=== PATIENT | female | born 1945 | race Caucasian/White ===

== ENCOUNTER 2024-02-02 11:27 | Inpatient (IN) | payer BC, MEDICARE ==
--- NOTE | 2024-02-02 11:57 | ED ---
Fall HPI - General Chief Complaint: Fall Stated Complaint: fall Time Seen by Provider: 02/02/24 11:29 Source: patient, EMS, RN notes reviewed Mode of arrival: EMS Limitations: physical limitation - History of Present Illness Initial Comments: 78-year-old female presents emergency department chief complaint of trip and fall. She states get up out of her bed to go the bathroom and tripped on the rug. Patient was on the ground in her bedroom when EMS arrived. She had no head injury no loss conscious she fell onto her right hip complains of right hip pain states that it only hurts with movement there is some dull achiness otherwise. Patient denies any back pain abdominal pain or other other extremity injury she states she does not have a history of hip issues or prior surgeries. Patient received 100 mcg of fentanyl by EMS - Related Data Home Medications Medication Instructions Recorded Confirmed Cholecalciferol [Vitamin D3 (25 50 mcg PO DAILY 02/02/24 02/02/24 Mcg = 1000 Iu)] Levothyroxine Sodium [Synthroid] 100 mcg PO AC-BRKFST 02/02/24 02/02/24 amLODIPine BESYLATE/BENAZEPRIL 1 cap PO DAILY 02/02/24 02/02/24 [amLODIPine BESYLATE/BENAZEPRIL 10-20 mg] Allergies Allergy/AdvReac Type Severity Reaction Status Date / Time No Known Allergies Allergy Verified 02/02/24 14:57 Review of Systems ROS Statement: Those systems with pertinent positive or pertinent negative responses have been documented in the HPI. ROS Other: All systems not noted in ROS Statement are negative. Past Medical History Past Medical History: Hypertension, Thyroid Disorder History of Any Multi-Drug Resistant Organisms: None Reported Past Surgical History: No Surgical Hx Reported Past Psychological History: No Psychological Hx Reported Smoking Status: Current every day smoker Past Alcohol Use History: Occasional Past Drug Use History: None Reported General Exam Limitations: no limitations General appearance: alert, in no apparent distress Head exam: Present: atraumatic, normocephalic, normal inspection Respiratory exam: Present: normal lung sounds bilaterally. Absent: respiratory distress, wheezes, rales, rhonchi, stridor Cardiovascular Exam: Present: regular rate, normal rhythm, normal heart sounds. Absent: systolic murmur, diastolic murmur, rubs, gallop, clicks Extremities exam: Present: other (Right leg there is notable shortening, e xternal rotation pedal pulses equal bilaterally there is moderate tenderness palpation to the right groin, hip region) Course Vital Signs 02/02/24 02/02/24 11:29 14:00 Temperature 97.7 F Pulse Rate 74 Pulse Rate [ 62 Pulse Oximetery ] Respiratory 18 15 Rate Blood Pressure 148/89 Blood Pressure 142/86 [Left Arm] O2 Sat by Pulse 96 94 L Oximetry Medical Decision Making - Medical Decision Making Was pt. sent in by a medical professional or institution (LUIS DANIEL Fisher, SENIOR ELECTRONICS TECHNICIAN, urgent care, hospital, or detention...) When possible be specific @ -No Did you speak to anyone other than the patient for history (EMS, parent, family, police, friend...)? What history was obtained from this source @ -EMS providing prehospital treatment, medications and injury Did you review nursing and triage notes (agree or disagree)? Why? @ -I reviewed and agree with nursing and triage notes Were old charts reviewed (outside hosp., previous admission, EMS record, old EKG, old radiological studies, urgent care reports/EKG's, detention records)? Report findings @ -No old charts were reviewed Differential Diagnosis (chest pain, altered mental status, abdominal pain women, abdominal pain men, vaginal bleeding, weakness, fever, dyspnea, syncope, headache, dizziness, GI bleed, back pain, seizure, CVA, palpatations, mental health, musculoskeletal)? @ -[Fall, hip contusion, hip fracture EKG interpreted by me (3pts min.). @ -As above X-rays interpreted by me (1pt min.). @ -X-ray right hip with AP pelvis showing right IT fracture CT interpreted by me (1pt min.). @ -None done U/S interpreted by me (1pt. min.). @ -None done What testing was considered but not performed or refused? (CT, X-rays, U/S, labs)? Why? @ -None What meds were considered but not given or refused? Why? @ -None Did you discuss the management of the patient with other professionals (professionals i.e. LUIS DANIEL Fisher, SENIOR ELECTRONICS TECHNICIAN, lab, RT, psych nurse, social service liaison, orthodontist small business owner, teacher, project control officer, case liner)? Give summary @ -Dr. Cramer on-call orthopedics for admission Was smoking cessation discussed for >3mins.? @ -No Was critical care preformed (if so, how long)? @ -No Were there social determinants of health that impacted care today? How? (Homelessness, low income, unemployed, alcoholism, drug addiction, transportation, low edu. Level, literacy, decrease access to med. care, [facility], rehab)? @ -No Was there de-escalation of care discussed even if they declined (Discuss DNR or withdrawal of care, Hospice)? DNR status @ -No What co-morbidities impacted this encounter? (DM, HTN, Smoking, COPD, CAD, Can cer, CVA, ARF, Chemo, Hep., AIDS, mental health diagnosis, sleep apnea, morbid obesity)? @ -None Was patient admitted / discharged? Hospital course, mention meds given and route, prescriptions, significant lab abnormalities, going to OR and other pertinent info. @ -Admitted patient found to have right IT fracture laboratory studies EKG and chest x-ray were ordered patient will be admitted for further treatment management. Undiagnosed new problem with uncertain prognosis? @ -No Drug Therapy requiring intensive monitoring for toxicity (Heparin, Nitro, Insulin, Cardizem)? @ -No Were any procedures done? @ -No Diagnosis/symptom? @ -Fall, right IT fracture Acute, or Chronic, or Acute on Chronic? @ -Acute Uncomplicated (without systemic symptoms) or Complicated (systemic symptoms)? @ -Complicated Side effects of treatment? @ -No Exacerbation, Progression, or Severe Exacerbation? @ -No Poses a threat to life or bodily function? How? (Chest pain, [place], [place], pneumonia, PE, COPD, DKA, ARF, appy, cholecystitis, CVA, Diverticulitis, Homicidal, Suicidal, threat to staff... and all critical care pts) @ -Yes surgical risk - Lab Data Result diagrams: 02/02/24 12:02 02/02/24 12:02 Lab Results 02/02/24 02/02/24 02/02/24 Range/Units 12:02 12:02 12:02 WBC 11.1 H (3.8-10.6) k/uL RBC 3.83 (3.80-5.40) m/uL Hgb 13.4 (11.4-16.0) gm/dL Hct 39.7 (34.0-46.0) % MCV 103.5 H (80.0-100.0) fL MCH 34.9 (25.0-35.0) pg MCHC 33.7 (31.0-37.0) g/dL RDW 14.0 (11.5-15.5) % Plt Count 169 (150-450) k/uL MPV 8.5 Neutrophils % 87 % Lymphocytes % 6 % Monocytes % 5 % Eosinophils % 1 % Basophils % 0 % Neutrophils # 9.7 H (1.3-7.7) k/uL Lymphocytes # 0.7 L (1.0-4.8) k/uL Monocytes # 0.6 (0-1.0) k/uL Eosinophils # 0.1 (0-0.7) k/uL Basophils # 0.0 (0-0.2) k/uL Macrocytosis Slight PT 11.5 (10.0-12.5) sec INR 1.1 (<1.2) APTT 24.9 (22.0-30.0) sec Sodium 130 L (137-145) mmol/L Potassium 3.9 (3.5-5.1) mmol/L Chloride 103 (98-107) mmol/L Carbon Dioxide 21 L (22-30) mmol/L Anion Gap 6 mmol/L BUN 8 (7-17) mg/dL Creatinine 0.41 L (0.52-1.04) mg/dL Est GFR (CKD-EPI)AfAm >90 (>60 ml/min/1.73 sqM) Est GFR (CKD-EPI)NonAf >90 (>60 ml/min/1.73 sqM) Glucose 111 H (74-99) mg/dL Calcium 8.3 L (8.4-10.2) mg/dL Total Bilirubin 1.1 (0.2-1.3) mg/dL AST 26 (14-36) U/L ALT 16 (4-34) U/L Alkaline Phosphatase 80 (38-126) U/L Total Protein 5.9 L (6.3-8.2) g/dL Albumin 3.7 (3.5-5.0) g/dL Urine Color Urine Appearance (Clear) Urine pH (5.0-8.0) Ur Specific [place] (1.001-1.035) Urine Protein (Negative) Urine Glucose (UA) (Negative) Urine Ketones (Negative) Urine Blood (Negative) Urine Nitrite (Negative) Urine Bilirubin (Negative) Urine Urobilinogen (<2.0) mg/dL Ur Leukocyte Esterase (Negative) 02/02/24 Range/Units 12:09 WBC (3.8-10.6) k/uL RBC (3.80-5.40) m/uL Hgb (11.4-16.0) gm/dL Hct (34.0-46.0) % MCV (80.0-100.0) fL MCH (25.0-35.0) pg MCHC (31.0-37.0) g/dL RDW (11.5-15.5) % Plt Count (150-450) k/uL MPV Neutrophils % % Lymphocytes % % Monocytes % % Eosinophils % % Basophils % % Neutrophils # (1.3-7.7) k/uL Lymphocytes # (1.0-4.8) k/uL Monocytes # (0-1.0) k/uL Eosinophils # (0-0.7) k/uL Basophils # (0-0.2) k/uL Macrocytosis PT (10.0-12.5) sec INR (<1.2) APTT (22.0-30.0) sec Sodium (137-145) mmol/L Potassium (3.5-5.1) mmol/L Chloride (98-107) mmol/L Carbon Dioxide (22-30) mmol/L Anion Gap mmol/L BUN (7-17) mg/dL Creatinine (0.52-1.04) mg/dL Est GFR (CKD-EPI)AfAm (>60 ml/min/1.73 sqM) Est GFR (CKD-EPI)NonAf (>60 ml/min/1.73 sqM) Glucose (74-99) mg/dL Calcium (8.4-10.2) mg/dL Total Bilirubin (0.2-1.3) mg/dL AST (14-36) U/L ALT (4-34) U/L Alkaline Phosphatase (38-126) U/L Total Protein (6.3-8.2) g/dL Albumin (3.5-5.0) g/dL Urine Color Colorless Urine Appearance Clear (Clear) Urine pH 7.5 (5.0-8.0) Ur Specific [place] 1.010 (1.001-1.035) Urine Protein Negative (Negative) Urine Glucose (UA) Negative (Negative) Urine Ketones Trace H (Negative) Urine Blood Negative (Negative) Urine Nitrite Negative (Negative) Urine Bilirubin Negative (Negative) Urine Urobilinogen <2.0 (<2.0) mg/dL Ur Leukocyte Esterase Negative (Negative) - EKG Data -: EKG Interpreted by Me EKG Comments: EKG performed at 15: 53 sinus rhythm with rate 65 NE 157 QRS 101 QT/QTc 397/[address] elevation or depression normal axis. Disposition Clinical Impression: Fall, Fracture, intertrochanteric, right femur Disposition: ADMITTED IP TO THIS HOSP Condition: Fair Time of Disposition: 11:57
[2024-02-02] MEDS ORDERED: NALOXONE 0.4 MG/ML 1 ML VIAL IV PRN (12:00)
[2024-02-02] MEDS ORDERED: HYDROmorphone 1 MG/ML 1 ML SYRINGE IVP PRN (12:00)
[2024-02-02 12:17] LABS: Basophils % (A) 0 %; Eosinophils # (A) 0.1 k/uL (0-0.7); Eosinophils % (A) 1 %; HCT 39.7 % (34.0-46.0); HGB 13.4 gm/dL (11.4-16.0); Lymphocytes # (A) 0.7 k/uL (1.0-4.8); Lymphocytes % (A) 6 %; MCH 34.9 pg (25.0-35.0); MCHC 33.7 g/dL (31.0-37.0); MCV 103.5 fL (80.0-100.0); Macrocytosis Slight; Mean Platelet Volume 8.5; Monocytes # (A) 0.6 k/uL (0-1.0); Monocytes % (A) 5 %; Neutrophils # (A) 9.7 k/uL (1.3-7.7); Neutrophils % (A) 87 %; Platelet Count 169 k/uL (150-450); RBC 3.83 m/uL (3.80-5.40); WBC 11.1 k/uL (3.8-10.6)
[2024-02-02 12:23] LABS: Appearance,Urine Clear (Clear); Bilirubin,Urine Negative (Negative); Blood,Urine Negative (Negative); Color,Urine Colorless; Glucose,Urine (UA) Negative (Negative); Ketones,Urine Trace (Negative); Leukocyte Esterase,Urine Negative (Negative); Nitrite,Urine Negative (Negative); PH, Urine 7.5 (5.0-8.0); Protein,Urine Negative (Negative); Urobilinogen,Urine <2.0 mg/dL (<2.0)
[2024-02-02 12:23] LABS: INR 1.1 (<1.2); Partial Thromboplastin Time 24.9 sec (22.0-30.0); Prothrombin Time 11.5 sec (10.0-12.5)
--- NOTE | 2024-02-02 12:27 | XR ---
EXAMINATION TYPE: XR Hip RT and AP Pelvis DATE OF EXAM: 02/02/2024 11:42 AM CLINICAL INDICATION:Female, 78 years old with history of pain; [facility] COMPARISON: None. TECHNIQUE: Frontal view pelvis and 2 views right hip. FINDINGS: Acute intertrochanteric region fracture of the right proximal femur involving the base of the femoral neck, with increased varus angulation at the fracture site. No hip dislocation. Moderate right hip o steoarthropathy. Right hemipelvis appears intact. There is mild deformity of the left superior and in ferior pubic rami, favored to represent remote healed fracture. Left hip is unremarkable. Sacrum and SI joints are largely obscured by bowel contents. Mild degenerative changes of the visualized lower l umbar spine. IMPRESSION: Acute intertrochanteric fracture of the right proximal femur with involvement of the base of the femo ral neck. Increased varus angulation at the fracture site.
[2024-02-02 12:37] LABS: ALT 16 U/L (4-34); AST 26 U/L (14-36); African American GFR (CKD) >90 (>60 ml/min/1.73 sqM); Albumin 3.7 g/dL (3.5-5.0); Alkaline Phosphatase 80 U/L (38-126); Anion Gap 6 mmol/L; Blood Urea Nitrogen 8 mg/dL (7-17); Calcium 8.3 mg/dL (8.4-10.2); Carbon Dioxide 21 mmol/L (22-30); Chloride 103 mmol/L (98-107); Glucose 111 mg/dL (74-99); Non-African American GFR(CKD) >90 (>60 ml/min/1.73 sqM); Potassium 3.9 mmol/L (3.5-5.1); Sodium 130 mmol/L (137-145); Total Bilirubin 1.1 mg/dL (0.2-1.3); Total Protein 5.9 g/dL (6.3-8.2)
--- NOTE | 2024-02-02 12:44 | XR ---
EXAMINATION TYPE: XR chest 1V DATE OF EXAM: 02/02/2024 12:16 PM CLINICAL INDICATION:Female, 78 years old with history of preop; [facility] COMPARISON: none TECHNIQUE: XR chest 1V Frontal view of the chest. FINDINGS: Lungs/Pleura: There is no evidence of pleural effusion, focal consolidation, or pneumothorax. Pulmonary vascularity: Pulmonary vascular congestion. Heart/mediastinum: Cardiomediastinal silhouette is unremarkable. Musculoskeletal: No acute osseous pathology. IMPRESSION: Mild pulmonary vascular congestion otherwise no acute pulmonary vascular congestion. Correlate serum BNP.
[2024-02-02] MEDS: HYDROmorphone 0.5 MG/0.5 ML SYRINGE IVP PRN (13:32)
[2024-02-02] MEDS: ONDANSETRON 4 MG/2 ML VIAL IVP PRN (15:00)
[2024-02-02] MEDS: ACETAMINOPHEN TAB 325 MG TAB PO PRN (17:51)
[2024-02-02] MEDS: SODIUM CHLORIDE 0.9% 1,000 ML IV SCH (18:06)
--- NOTE | 2024-02-03 00:01 | P.CONS ---
History of Present Illness - Reason for Consult Consult date: 02/02/24 Medical management - Chief Complaint Right hip pain - History of Present Illness Patient is a 78-year-old female with a past medical history of hypertension, hypothyroidism presents to ER status post fall. Patient woke up early in the a.m. today and was going to the bathroom. Patient tripped on the rug and fell on the ground. Patient was found on the floor when EMS arrived. Otherwise patient denied any loss of consciousness. Denies any hitting her head. She was complaining of right hip pain especially with movements and has been constant. Denies any recent illnesses. No chest pain or shortness of breath. No headache or dizziness or lightheadedness. No complaints of back pain. Denies any fever or chills. X-ray hip/pelvis showed acute intertrochanteric fracture of the right proximal femur with involvement of the base of the femoral neck. Increased varus angulation at the fracture site. Chest x-ray showed mild pulmonary vascular congestion and correlate with proBNP Laboratory data showed WBC 11.1 hemoglobin 13.4 and platelets 169 MCV 103.5, sodium 130 potassium 3.9 chloride 103 bicarb is 21 BUN 18 creatinine 0.41 blood sugar 111 and calcium 8.3. Urinalysis is negative for infection. Review of Systems Constitutional: Patient denies any fever or chills . No generalized weakness or weight loss. Abdomen: Patient denied nausea vomiting and diarrhea and abdominal pain. Cardiovascular: Patient denies any chest pain or short of breath no pa lpitations. Respiratory: patient denied any cough is from production. No shortness of breath Neurologic: Patient denied any numbness or tingling headache. Musculoskeletal: Patient denies any complaints of joint swelling or deformity. Right hip pain Skin: Negative Psychiatric: Negative Endocrine: No heat or cold intolerance. No recent weight gain. Genitourinary: No dysuria or hematuria. All other 14 point ROS negative except the above Past Medical History Past Medical History: Hypertension, Thyroid Disorder History of Any Multi-Drug Resistant Organisms: None Reported Past Surgical History: No Surgical Hx Reported Past Psychological History: No Psychological Hx Reported Smoking Status: Current every day smoker Past Alcohol Use History: Occasional Past Drug Use History: None Reported Medications and Allergies Home Medications Medication Instructions Recorded Confirmed Type Cholecalciferol [Vitamin D3 (25 50 mcg PO DAILY 02/02/24 02/02/24 History Mcg = 1000 Iu)] Levothyroxine Sodium [Synthroid] 100 mcg PO AC-BRKFST 02/02/24 02/02/24 History amLODIPine BESYLATE/BENAZEPRIL 1 cap PO DAILY 02/02/24 02/02/24 History [amLODIPine BESYLATE/BENAZEPRIL 10-20 mg] Aspirin [Adult Low Dose Aspirin EC] 81 mg PO BID #1 tab 02/03/24 Rx HYDROcodone/APAP 5-325MG [[place] 1 - 2 tab PO Q6HR PRN #32 tab 02/03/24 Rx 5-325] Sennosides-Docusate Sodium 1 tab PO BID #60 tablet 02/03/24 Rx [Senokot-S] Acetaminophen Tab [Tylenol] 650 mg PO Q6HR PRN tab 02/05/24 Rx Cyanocobalamin [Vitamin B-12] 1,000 mcg PO W/BRKFST tab 02/05/24 Rx Famotidine [Pepcid] 20 mg PO BID tab 02/05/24 Rx Magnesium Hydroxide [Milk of 2,400 mg PO DAILY PRN ml 02/05/24 Rx Magnesia] Allergies Allergy/AdvReac Type Severity Reaction Status Date / Time No Known Allergies Allergy Verified 02/02/24 14:57 Physical Exam Vitals: Vital Signs Pulse Resp BP Pulse Ox 02/02/24 11:29 74 18 148/89 96 Intake and Output 02/01/24 02/02/24 02/02/24 22:59 06:59 14:59 Other: Weight 61.235 kg PHYSICAL EXAMINATION: Patient is lying in the bed comfortably, no acute distress, awake alert and oriented.. HEENT: Normocephalic. Neck is supple. Pupils reactive. Nostrils clear. Oral cavity is moist. Neck reveals no JVD, carotid bruits, or thyromegaly. CHEST EXAMINATION: Trachea is central. Symmetrical expansion. Lung talavera clear to auscultation and percussion. CARDIAC: Normal S1, S2 with no gallops. No murmurs ABDOMEN: Soft. Bowel sounds normal. No organomegaly. No abdominal bruits. Extremities: reveal no edema. No clubbing or cyanosis Neurologically awake, alert, oriented x3 with well-coordinated movements. No focal deficits noted Skin: No rash or skin lesions. Psychiatric: Coperative. Nonsuicidal Musculoskeletal: No joint swelling or deformity. Right hip decreased range of motion Results CBC & Chem 7: 02/05/24 05:31 02/05/24 05:31 Labs: Abnormal Lab Results - Last 24 Hours (Table) 02/02/24 02/02/24 02/02/24 Range/Units 12:02 12:02 12:09 WBC 11.1 H (3.8-10.6) k/uL MCV 103.5 H (80.0-100.0) fL Neutrophils # 9.7 H (1.3-7.7) k/uL Lymphocytes # 0.7 L (1.0-4.8) k/uL Sodium 130 L (137-145) mmol/L Carbon Dioxide 21 L (22-30) mmol/L Creatinine 0.41 L (0.52-1.04) mg/dL Glucose 111 H (74-99) mg/dL Calcium 8.3 L (8.4-10.2) mg/dL Total Protein 5.9 L (6.3-8.2) g/dL Urine Ketones Trace H (Negative) Assessment and Plan Assessment: Acute intertrochanteric fracture of the right proximal femur with involvement of the base of the femoral neck. Hypertension fairly controlled. Hypothyroidism Mild leukocytosis likely reactive Hypovolemic hyponatremia GI and DVT prophylaxis as per primary team Plan: Patient will be continued on pain management and encourage incentive spirometry. Patient was started on gentle IV hydration. Currently on room air and no complaints of chest pain or shortness of breath. Follow-up proBNP level is significantly elevated will order 2D echocardiogram. Follow-up CBC and BMP tomorrow Start back on home blood pressure medication including Norvasc and lisinopril. Ordered B12 and folate levels due to macrocytosis. Patient does not have any prior history of smoking. No prior history of CKD or CVA. Revised cardiac risk index for preoperative risk is less than 3.9%. Otherwise patient does have good functional status prior to the fall. Patient is at low risk for hepatic surgery. Will continue to follow closely and further recommendations based on the clinical course. Thank you kindly for your consult. Time with Patient: Greater than 30
[2024-02-03] MEDS: LEVOTHYROXINE 100 MCG TAB PO SCH (06:50)
[2024-02-03] MEDS: CHOLECALCIFEROL 25 MCG (1000 IU) TABLET PO SCH (07:47)
[2024-02-03 08:01] LABS: Basophils % (A) 0 %; Eosinophils % (A) 0 %; HCT 38.4 % (34.0-46.0); HGB 12.5 gm/dL (11.4-16.0); Lymphocytes # (A) 1.2 k/uL (1.0-4.8); Lymphocytes % (A) 11 %; MCH 34.3 pg (25.0-35.0); MCHC 32.6 g/dL (31.0-37.0); MCV 105.5 fL (80.0-100.0); Macrocytosis Slight; Mean Platelet Volume 8.4; Monocytes # (A) 0.6 k/uL (0-1.0); Monocytes % (A) 5 %; Neutrophils # (A) 9.1 k/uL (1.3-7.7); Neutrophils % (A) 83 %; Platelet Count 168 k/uL (150-450); RBC 3.64 m/uL (3.80-5.40); RDW 13.6 % (11.5-15.5)
[2024-02-03 08:27] LABS: African American GFR (CKD) >90 (>60 ml/min/1.73 sqM); Anion Gap 6 mmol/L; Blood Urea Nitrogen 7 mg/dL (7-17); Calcium 8.3 mg/dL (8.4-10.2); Carbon Dioxide 20 mmol/L (22-30); Chloride 103 mmol/L (98-107); Glucose 96 mg/dL (74-99); Non-African American GFR(CKD) >90 (>60 ml/min/1.73 sqM); Potassium 3.5 mmol/L (3.5-5.1); Sodium 129 mmol/L (137-145)
--- NOTE | 2024-02-03 08:54 | P.HPOR ---
History of Present Illness H&P Date: 02/02/24 Chief Complaint: Right hip fracture. This is a 78-year-old female who lost her footing and fell in her bathroom early in the morning on 02/02/2024 and sustained injury to her right hip. On exam and x-ray in the emergency department she is found to have an intertrochanteric fr acture of the right hip. She is admitted to our service for surgical intervention and care. She has no complaint of head or neck pain. No complaint of low back pain. Past Medical History Past Medical History: Hypertension, Thyroid Disorder History of Any Multi-Drug Resistant Organisms: None Reported Past Surgical History: No Surgical Hx Reported Additional Past Surgical History / Comment(s): eye surgery Past Anesthesia/Blood Transfusion Reactions: No Reported Reaction Past Psychological History: No Psychological Hx Reported Smoking Status: Current every day smoker Past Alcohol Use History: Occasional Past Drug Use History: None Reported Medications and Allergies Home Medications Medication Instructions Recorded Confirmed Type Cholecalciferol [Vitamin D3 (25 50 mcg PO DAILY 02/02/24 02/02/24 History Mcg = 1000 Iu)] Levothyroxine Sodium [Synthroid] 100 mcg PO AC-BRKFST 02/02/24 02/02/24 History amLODIPine BESYLATE/BENAZEPRIL 1 cap PO DAILY 02/02/24 02/02/24 History [amLODIPine BESYLATE/BENAZEPRIL 10-20 mg] Allergies Allergy/AdvReac Type Severity Reaction Status Date / Time No Known Allergies Allergy Verified 02/02/24 14:57 Physical Examination This is a pleasant 78-year-old female in no acute distress. She is alert and oriented x 3. Her is present at bedside. Exam of the head neck revealed no obvious deformity. She has full cervical spine motion without difficulty or pain. Exam of the upper extremities reveals no obvious deformity. She has full shoulder, elbow, wrist and finger motion bilaterally. Neurovascular status to the upper extremities is intact. Exam of the lower extremities reveals shortening and external rotation to the right leg. There is some very mild edema to the lower legs bilaterally. She has full foot and ankle motion bilaterally. Neurovascular status to the lower extremities is intact. Results X-rays of the hip and pelvis reveal a minimally displaced intertrochanteric fracture of the right hip. No other bony abnormalities noted. - Labs Labs: Abnormal Lab Results - Last 24 Hours (Table) 02/02/24 02/02/24 02/02/24 Range/Units 12:02 12:02 12:09 WBC 11.1 H (3.8-10.6) k/uL RBC (3.80-5.40) m/uL MCV 103.5 H (80.0-100.0) fL Neutrophils # 9.7 H (1.3-7.7) k/uL Lymphocytes # 0.7 L (1.0-4.8) k/uL Sodium 130 L (137-145) mmol/L Carbon Dioxide 21 L (22-30) mmol/L Creatinine 0.41 L (0.52-1.04) mg/dL Glucose 111 H (74-99) mg/dL Calcium 8.3 L (8.4-10.2) mg/dL Total Protein 5.9 L (6.3-8.2) g/dL Urine Ketones Trace H (Negative) 02/03/24 02/03/24 Range/Units 06:33 06:36 WBC 11.0 H (3.8-10.6) k/uL RBC 3.64 L (3.80-5.40) m/uL MCV 105.5 H (80.0-100.0) fL Neutrophils # 9.1 H (1.3-7.7) k/uL Lymphocytes # (1.0-4.8) k/uL Sodium 129 L (137-145) mmol/L Carbon Dioxide 20 L (22-30) mmol/L Creatinine 0.46 L (0.52-1.04) mg/dL Glucose (74-99) mg/dL Calcium 8.3 L (8.4-10.2) mg/dL Total Protein (6.3-8.2) g/dL Urine Ketones (Negative) H & H 02/02/24 02/03/24 Range/Units 12:02 06:36 Hgb 13.4 12.5 (11.4-16.0) gm/dL Hct 39.7 38.4 (34.0-46.0) % Coagulation 02/02/24 Range/Units 12:02 INR 1.1 (<1.2) Result Diagrams: 02/03/24 06:36 02/03/24 06:33 Assessment and Plan (1) Fall Current Visit: Yes Status: Acute Code(s): W19.XXXA - UNSPECIFIED FALL, INITIAL ENCOUNTER SNOMED Code(s): 9851028 (2) Fracture, intertrochanteric, right femur Current Visit: Yes Status: Acute Code(s): S72.141A - DISPLACED INTERTROCHANTERIC FRACTURE OF RIGHT FEMUR, INIT SNOMED Code(s): 768928108 Plan: The clinical and x-ray findings are discussed with the patient and her . It is recommended she undergo closed reduction with insertion of intertrochanteric nail of the right hip. We are planning the procedure for today. The procedure has been discussed in detail including the possible risks and outcomes of surgery. We discussed the potential need for inpatient rehab postoperatively. After discussion and consideration the patient elects to proceed with surgery. She has been evaluated by internal medicine and deemed an acceptable risk for surgery.
[2024-02-03] MEDS ORDERED: fentaNYL (PF) 50 MCG/ML 2 ML AMP ONE (09:01)
[2024-02-03] MEDS ORDERED: ePHEDrine 50 MG/ML 1 ML VIAL ONE (09:01)
[2024-02-03] MEDS ORDERED: KETAMINE HCL IN 0.9 % NACL 50 MG/5 ML SYRINGE ONE (09:01)
[2024-02-03] MEDS ORDERED: PROPOFOL 10 MG/ML 20 ML VIAL IV ONE (09:01)
[2024-02-03] MEDS ORDERED: TRANEXAMIC 1,000 MG/100ML-NACL PREMIX BAG ONE (09:01)
[2024-02-03] MEDS ORDERED: MIDAZOLAM 2 MG/2 ML VIAL ONE (09:01)
[2024-02-03] MEDS: LACTATED RINGERS 1,000 ML IV ONE (09:05)
[2024-02-03] MEDS: SODIUM CHLORIDE 0.9% 50 ML with ceFAZolin 2,000 MG IV ONE (09:05)
[2024-02-03] MEDS: ceFAZolin 1,000 MG in SODIUM CHLORIDE 0.9% 1,000 ML IRRIGATION ONE (09:38)
--- NOTE | 2024-02-03 10:03 | P.OP ---
Date of Procedure: 02/03/24 Procedure(s) Performed: PREOPERATIVE DIAGNOSIS: Right hip intertrochanteric fracture. POSTOPERATIVE DIAGNOSIS: Right hip intertrochanteric fracture. OPERATION: Right hip intertrochanteric fracture closed reduction and intramedullary nailing using Synthes IT nail. SEED EXPERT: Lorenza Hurtado PA-C (Assistance with: Patient positioning, retraction, exposure, hemostasis, fixation, irrigation, closure, dressing) ANESTHESIA: Spinal ESTIMATED BLOOD LOSS: 50 mL. COMPLICATIONS: None OPERATIVE FINDINGS: See dictation INDICATIONS: Nataly is a 78-year-old female with a history of right intertrochanteric fracture. The fracture is a clean basi-cervical type fracture. The patient presents to the operating room today for closed reduction and intramedullary nailing. I discussed the risks of surgery in detail as being inclusive of but not limited to: Bleeding, infection, scarring, discomfort, blood vessel and/or nerve damage, need for further surgery, malunion, nonunion, gait disturbance including persistent or permanent limp, limb length inequality, arthritis, hardware failure, blood clot, pulmonary embolism, , and other risks. The consent form has been signed. PROCEDURE: After appropriate consent was obtained, the patient was taken to the operating room and placed in supine position. Spinal anesthetic was administered and after confirmation of adequate anesthesia, the patient was carefully placed in the supine position on the operating room table in the fracture table. The patient was placed up against a well-padded peroneal post. Care was taken to make sure about that all pressure points were adequately padded. The affected leg was placed in boot traction and the unaffected leg was placed in a well leg ku. Using gentle longitudinal distraction as well as adduction and internal rotation, the fracture was reduced as assessed by AP and lateral C-arm imaging. Once a satisfactory reduction had been obtained, the thigh was prepped and draped in the usual aseptic fashion using ChloraPrep. Ioban drape was used for the case and the patient received intravenous antibiotics prior to incision. Timeout was called, confirming patient identity, side, procedure, and administration of antibiotics. The incision was then created with a #10 blade just proximal to the greater trochanter laterally. It was carried down through skin into the subcutaneous tissues and through fascia. Hemostasis was obtained using electrocautery. The tip of the greater trochanter was palpated and a guide pin was placed at the tip and directed into the femoral shaft as assessed with C-arm imaging. Once optimal pin position had been obtained, a 17 mm reamer was used over the guide pin to create a path for the IT nail. IT nail selected was assembled to the insertion jig on the back table and bushings were checked for accuracy. The nail was then inserted using gentle mallet taps until it was fully deployed. The amount of rotation of the implant was assessed based on the amount of anteversion of the femoral neck. This was rotated to match the patient's femoral neck anteversion and the helical blade guide was placed through the insertion jig and through an incision on the lateral side of the thigh more distal than the first. Once this guide was placed against the lateral cortex of the femur, a guide pin was drilled into the central region of the femoral head and neck as based on AP and lateral C-arm imaging. Once optimal pin position had been obtained, the guidewire was measured and appropriately sized helical blade was selected. The path for the helical blade was prepared using a tapered reamer. The helical blade was then inserted using gentle mallet taps along the guidewire until it was fully deployed. There was no displacement of the fracture during this step. The anti-rotation screw was locked down and the insertion apparatus for the helical blade was removed. The guide pin was then removed. Traction was then removed from the leg and the distal interlock was placed through the jig using standard technique. Finally, the insertion jig for the nail was removed and final C-arm images were taken and saved in both AP and lateral planes. The final x-rays showed satisfactory positioning of the implant and good reduction of the fracture. The top of the nail was plugged with a small quantity of bone wax and the incisions were then thoroughly irrigated with normal saline. Final hemostasis was obtained using electrocautery and closure of the fascia was performed using 0-Vicryl suture. 2-0 Vicryl suture was used in the subcutaneous tissues and standard skin closure was performed. Sterile dressing was then applied and the patient was carefully removed from the fracture table frame and placed onto the stretcher. The patient tolerated the procedure well. There were no complications and above noted blood loss. The patient was then subsequently transferred to recovery room in stable condition. Sponge and needle counts were correct.
[2024-02-03] MEDS ORDERED: NALOXONE 0.4 MG/ML 1 ML VIAL IV PRN (10:26)
[2024-02-03] MEDS ORDERED: HYDROmorphone 0.5 MG/0.5 ML SYRINGE IVP PRN ×2 (10:26)
[2024-02-03] MEDS: IV FLUID CONTINUATION 1,000 ML IV ONE (11:07)
[2024-02-03] MEDS: HYDROcodone/APAP 5-325MG 1 EACH TAB PO PRN ×2 (12:28→17:54)
[2024-02-03] MEDS: LACTATED RINGERS 1,000 ML IV SCH (12:29)
[2024-02-03] MEDS: amLODIPine 10 MG TAB PO SCH (13:41)
--- NOTE | 2024-02-03 13:41 | FL ---
EXAMINATION TYPE: FL guidance operating room, XR Hip Limited RT Intraoperative/procedural fluoroscopi c services were provided. Total fluoroscopy time is 30 seconds with a total of 2 submitted images to PACS. Please see the operative/procedural note for further details. DAP: 1.7728 Gycm2
[2024-02-03] MEDS: lisinopriL 20 MG TAB PO SCH (13:42)
[2024-02-03] MEDS: HYDROmorphone 0.5 MG/0.5 ML SYRINGE IVP PRN (15:18)
[2024-02-03] MEDS: SENNOSIDES-DOCUSATE SODIUM 1 EACH TAB PO SCH (21:03)
[2024-02-03] MEDS: ASPIRIN 81 MG PO SCH (21:03)
[2024-02-04] MEDS ORDERED: Potassium Replacement Protocol 1 EACH MISC MISCELLANE PRN (02:02)
--- NOTE | 2024-02-04 02:02 | P.PN ---
Subjective Progress Note Date: 02/03/24 Patient is a 78-year-old female with a past medical history of hypertension, hypothyroidism presents to ER status post fall. Patient woke up early in the a.m. today and was going to the bathroom. Patient tripped on the rug and fell on the ground. Patient was found on the floor when EMS arrived. Otherwise patient denied any loss of consciousness. Denies any hitting her head. She was complaining of right hip pain especially with movements and has been constant. Denies any recent illnesses. No chest pain or shortness of breath. No headache or dizziness or lightheadedness. No complaints of back pain. Denies any fever or chills. X-ray hip/pelvis showed acute intertrochanteric fracture of the right proximal femur with involvement of the base of the femoral neck. Increased varus angulation at the fracture site. Chest x-ray showed mild pulmonary vascular congestion and correlate with proBNP Laboratory data showed WBC 11.1 hemoglobin 13.4 and platelets 169 MCV 103.5, sodium 130 potassium 3.9 chloride 103 bicarb is 21 BUN 18 creatinine 0.41 blood sugar 111 and calcium 8.3. Urinalysis is negative for infection 02/03/2024 Patient is status post closed reduction and intramedullary nailing for right hip intertrochanteric fracture. Postoperative day 0 Patient is complaining of pain but controlled with medications. Also was nauseous. No episodes of vomiting. No fever no chest pain no chest pain or shortness of breath. Laboratory data showed WBC 11.0 hemoglobin 12.5 and platelets 168, sodium 129 potassium 3.5 chloride 103 bicarb is 20 BUN 7 creatinine 0.46 and blood sugar is 8.3 and B12 level is 169. Current medications reviewed. Objective - Vital Signs Vital signs: Vital Signs Temp 98.1 F 02/03/24 15:22 Pulse 69 02/03/24 15:22 Resp 17 02/03/24 15:22 BP 128/72 02/03/24 15:22 Pulse Ox 92 L 02/03/24 15:22 FiO2 Intake & Output 02/03/24 02/03/24 02/04/24 06:59 18:59 06:59 Intake Total 420 1651 Output Total 200 750 Balance 220 901 Intake: IV 1651 Lactated Ringers 1,000 ml 600 @ 100 mls/hr IV .Q10H MIGUE Rx#:[id number] Oral 420 Output: Urine 200 700 Uretheral (Cardenas) 50 Estimated Blood Loss 50 Other: Voiding Method Indwelling Catheter Indwelling Catheter - Exam PHYSICAL EXAMINATION: Patient is lying in the bed comfortably, no acute distress, awake alert and oriented.. HEENT: Normocephalic. Neck is supple. Pupils reactive. Nostrils clear. Oral cavity is moist. Neck reveals no JVD, carotid bruits, or thyromegaly. CHEST EXAMINATION: Trachea is central. Symmetrical expansion. Bibasilar diminished sounds otherwise lung talavera clear to auscultation and percussion. CARDIAC: Normal S1, S2 with no gallops. No murmurs ABDOMEN: Soft. Bowel sounds normal. No organomegaly. No abdominal bruits. Extremities: reveal no edema. No clubbing or cyanosis Neurologically awake, alert, oriented x3 with well-coordinated movements. No focal deficits noted Skin: No rash or skin lesions. Psychiatric: Coperative. Nonsuicidal Musculoskeletal: No joint swelling or deformity. Right hip surgical site intact. - Labs CBC & Chem 7: 02/03/24 06:36 02/03/24 06:33 Labs: Abnormal Lab Results - Last 24 Hours (Table) 02/03/24 02/03/24 02/03/24 Range/Units 06:33 06:34 06:36 WBC 11.0 H (3.8-10.6) k/uL RBC 3.64 L (3.80-5.40) m/uL MCV 105.5 H (80.0-100.0) fL Neutrophils # 9.1 H (1.3-7.7) k/uL Sodium 129 L (137-145) mmol/L Carbon Dioxide 20 L (22-30) mmol/L Creatinine 0.46 L (0.52-1.04) mg/dL Calcium 8.3 L (8.4-10.2) mg/dL Vitamin B12 169.0 L (200.0-944.0) pg/mL Assessment and Plan Assessment: Acute intertrochanteric fracture of the right proximal femur with involvement of the base of the femoral neck. Status post closed reduction and intramedullary nailing. Postop day 0 Vitamin B12 deficiency Hypertension fairly controlled. Hypothyroidism Mild leukocytosis likely reactive Hypovolemic hyponatremia GI and DVT prophylaxis as per primary team Plan: Patient is status post closed reduction and intramedullary nailing. Patient will be continued on pain management and encourage incentive spirometry. Patient was started on gentle IV hydration. Currently on room air and no complaints of chest pain or shortness of breath. proBNP 813. Patient is B12 deficient otherwise. Start back on home blood pressure medication including Norvasc and lisinopril. Will continue to follow closely and further recommendations based on the clinical course. Thank you kindly for your consult. Time with Patient: Greater than 30
[2024-02-04] MEDS: CYANOCOBALAMIN 1,000 MCG/ML 1 ML VIAL IM SCH (08:42)
[2024-02-04 08:51] LABS: Blood Urea Nitrogen 6.8 mg/dL (9.0-27.0); Calcium 8.2 mg/dL (8.7-10.3); Carbon Dioxide 24.3 mmol/L (21.6-31.8); Chloride 96 mmol/L (96-109); Glucose 101 mg/dL (70-110); Potassium 3.7 mmol/L (3.5-5.5); Sodium 128 mmol/L (135-145)
[2024-02-04] MEDS: FAMOTIDINE 20 MG TAB PO SCH (09:00)
--- NOTE | 2024-02-04 12:38 | P.PN ---
Subjective Progress Note Date: 02/04/24 Principal diagnosis: Postop right hip intertrochanteric nail. This is a 78-year-old female who is postop day #1 status post closed reduction with insertion of intertrochanteric nail of the right hip. She has no new complaints or concerns today. Vital signs are stable. Objective - Vital Signs Vital signs: Vital Signs Temp 98.1 F 02/04/24 07:11 Pulse 62 02/04/24 07:11 Resp 18 02/04/24 11:03 BP 128/83 02/04/24 07:11 Pulse Ox 92 L 02/04/24 07:11 FiO2 Intake & Output 02/03/24 02/04/24 02/04/24 18:59 06:59 18:59 Intake Total 1651 950 Output Total 750 800 650 Balance 901 150 -650 Intake: IV 1651 Lactated Ringers 1,000 ml 600 @ 100 mls/hr IV .Q10H MIGUE Rx#:[id number] Oral 950 Output: Urine 700 800 650 Uretheral (Cardenas) 50 Estimated Blood Loss 50 Other: Voiding Method Indwelling Catheter External Catheter External Catheter - Exam This is a pleasant 78-year-old female in no acute distress. She is alert and oriented x 3. Exam of the right hip reveals that her dressing is clean, dry and intact. She has full foot and ankle motion without difficulty or pain. Neurovascular status to the right lower extremity is intact. - Labs CBC & Chem 7: 02/03/24 06:36 02/04/24 04:51 Labs: Abnormal Lab Results - Last 24 Hours (Table) 02/03/24 02/04/24 Range/Units 06:34 04:51 Sodium 128 L (135-145) mmol/L BUN 6.8 L (9.0-27.0) mg/dL Creatinine 0.4 L (0.6-1.5) mg/dL Calcium 8.2 L (8.7-10.3) mg/dL Vitamin B12 169.0 L (200.0-944.0) pg/mL Assessment and Plan (1) Fall Current Visit: Yes Status: Acute Code(s): W19.XXXA - UNSPECIFIED FALL, INITIAL ENCOUNTER SNOMED Code(s): 1558377 (2) Fracture, intertrochanteric, right femur Current Visit: Yes Status: Acute Code(s): S72.141A - DISPLACED INTERTROCHANTERIC FRACTURE OF RIGHT FEMUR, INIT SNOMED Code(s): 004899818 Plan: The clinical findings are discussed with the patient. We will begin physical therapy today. Evaluation for possible inpatient rehab. The patient would like to be discharged to home with outpatient therapy if possible.
--- NOTE | 2024-02-04 16:46 | P.PAINCN ---
History of Present Illness - Reason for Consult Consult date: 02/04/24 Rehab Needs - Chief Complaint Rigth Leg Pain - History of Present Illness PMR CONSULT Mrs. Quinteros is a 78 yo female who lives with her in a 2 story home with an "open floor plan" and master bedroom on 1st floor with 2 SALINA. She was independent with mobility and ADLS PTE. She has 4 supportive adult children, though they do not live nearby. She has a past medical history of hypertension, hypothyroidism presents to ER status post fall. Patient woke up and was going to the bathroom,tripped on the rug and fell on the ground. Patient was found on the floor when EMS arrived. O therwise patient denied any loss of consciousness. Denies any hitting her head. She was complaining of right hip pain especially with movements and has been constant. X-ray hip/pelvis showed acute intertrochanteric fracture of the right proximal femur with involvement of the base of the femoral neck. Chest x-ray showed mild pulmonary vascular congestion and correlate with proBNP. Laboratory data showed WBC 11.1 hemoglobin 13.4 and platelets 169 MCV 103.5, sodium 130 potassium 3.9 chloride 103 bicarb is 21 BUN 18 creatinine 0.41 blood sugar 111 and calcium 8.3. Diagnosed with right IT fracture s/p right IM nailing 02/03/24. States she is 50% WB. Pain ok at rest, but having increased pain when up. Has h/o detached retina. Some nausea with medications. Otherwise, denies MA, CP, SOB, abdominal pain, numbness/tingling. Last BM Sunday. With therapies today was Mod A x2 for transfers, mobility. Review of Systems + per HPI, o/w all systems reviewed negative. Past Medical History Past Medical History: Hypertension, Thyroid Disorder History of Any Multi-Drug Resistant Organisms: None Reported Past Surgical History: No Surgical Hx Reported Additional Past Surgical History / Comment(s): eye surgery Past Anesthesia/Blood Transfusion Reactions: No Reported Reaction Past Psychological History: No Psychological Hx Reported Smoking Status: Current every day smoker Past Alcohol Use History: Occasional Past Drug Use History: None Reported Medications and Allergies Home Medications Medication Instructions Recorded Confirmed Type Cholecalciferol [Vitamin D3 (25 50 mcg PO DAILY 02/02/24 02/02/24 History Mcg = 1000 Iu)] Levothyroxine Sodium [Synthroid] 100 mcg PO AC-KT 02/02/24 02/02/24 History amLODIPine BESYLATE/BENAZEPRIL 1 cap PO DAILY 02/02/24 02/02/24 History [amLODIPine BESYLATE/BENAZEPRIL 10-20 mg] Aspirin [Adult Low Dose Aspirin EC] 81 mg PO BID #1 tab 02/03/24 Rx HYDROcodone/APAP 5-325MG [Imperial 1 - 2 tab PO Q6HR PRN #32 tab 02/03/24 Rx 5-325] Sennosides-Docusate Sodium 1 tab PO BID #60 tablet 02/03/24 Rx [Senokot-S] Allergies Allergy/AdvReac Type Severity Reaction Status Date / Time No Known Allergies Allergy Verified 02/02/24 14:57 Physical Exam Vitals: Vital Signs Temp Pulse Pulse Resp BP BP Pulse Ox 02/04/24 14:45 98.0 F 69 18 110/69 95 02/04/24 11:03 18 02/04/24 07:11 98.1 F 62 18 128/83 92 L 02/04/24 01:50 97.7 F 58 L 20 151/79 91 L 02/03/24 19:46 98.0 F 62 20 106/64 91 L Intake and Output 02/04/24 02/04/24 02/04/24 06:59 14:59 22:59 Intake Total 950 250 Output Total 800 650 Balance 150 -400 Intake: Oral 950 250 Output: Urine 800 650 Other: Voiding Method External Catheter Patient is lying in the bed comfortably, no acute distress, awake alert and oriented x4 HEENT: Normocephalic. Neck is supple. Pupils reactive. Nostrils clear. Oral cavity is moist. Lungs: non-labored respirations. CARDIAC: regular rate ABDOMEN: Soft. NT/ND Extremities: No calf TTP, no signicant LE edema. Neurologically: awake, alert, oriented x4. MMT 5/5 bilateral UE, Left LE; right HF/KE limited secondary to pain. Sensation light touch intact UE/LE Skin: No rash or skin lesions. Psychiatric: Cooperative. Pleasant Skin: Right hip surgical site with dressing in place. Results CBC & Chem 7: 02/03/24 06:36 02/04/24 04:51 Labs: Abnormal Lab Results - Last 24 Hours (Table) 02/04/24 Range/Units 04:51 Sodium 128 L (135-145) mmol/L BUN 6.8 L (9.0-27.0) mg/dL Creatinine 0.4 L (0.6-1.5) mg/dL Calcium 8.2 L (8.7-10.3) mg/dL Assessment and Plan Assessment: # Gait impairment -continue PT/OT. -At this time has been mod A x2 for mobility one day post-op # Acute intertrochanteric fracture of the right proximal femur with involvement of the base of the femoral neck s/p closed reduction and intramedullary nailing 02/03/24. # Vitamin B12 deficiency # Hypertension fairly controlled. # Hypothyroidism # Mild leukocytosis likely reactive # Hypovolemic hyponatremia Recommendations: - per your medical management - continue therapies. - pain management At this time, she is more appropriate for FROILAN when medically stable (would not meed medical complexity for IPR). PQRS Measure Charge Sheet - Pain Location Right Hip Non-Pharmacological Interventions: Darkened Room, Position/Reposition Pharmacological Interventions: PRN Medication PQRS Narrative: Smoking Status Current every day smoker Blood Pressure [Right Arm] 110/69 Blood Pressure [Left Arm] 151/79 Blood Pressure 148/89 Pain Intensity [Right Hip] 5 Pain Intensity 5 Pain Scale Used Non Verbal Pain Indicator Scale Used Numeric (1 - 10) Home Medications: Ambulatory Orders Cholecalciferol [Vitamin D3 (25 Mcg = 1000 Iu)] 50 mcg PO DAILY 02/02/24 Levothyroxine Sodium [Synthroid] 100 mcg PO AC-BRKFST 02/02/24 amLODIPine BESYLATE/BENAZEPRIL [amLODIPine BESYLATE/BENAZEPRIL 10-20 mg] 1 cap PO DAILY 02/02/24 Aspirin [Adult Low Dose Aspirin EC] 81 mg PO BID #1 tab 02/03/24 HYDROcodone/APAP 5-325MG [Imperial 5-325] 1 - 2 tab PO Q6HR PRN #32 tab 02/03/24 Sennosides-Docusate Sodium [Senokot-S] 1 tab PO BID #60 tablet 02/03/24
[2024-02-05] MEDS: CYANOCOBALAMIN 500 MCG TAB PO SCH (06:43)
--- NOTE | 2024-02-05 07:57 | PN ---
PROGRESS NOTE DATE OF SERVICE: 02/04/2024 This is a 78-year-old woman, who was admitted after intertrochanteric fracture, is being closely monitored. PT, OT evaluated the patient. No chest pain. No palpitations. No fever. PHYSICAL EXAMINATION: VITAL SIGNS: Pulse 62, blood pressure n respirations 18. CHEST: Clear to auscultation. CARDIOVASCULAR: S1, S2. ABDOMEN: Soft. LEGS: Status post surgery. LABORATORY DATA: Sodium 128. ASSESSMENT: 1. Right hip intertrochanteric fracture closed reduction and intramedullary nailing using Synthes 2. Hypertension. 3. Hypothyroidism. 4. Gait dysfunction. RECOMMENDATIONS: Recommend to continue current management. Repeat labs. Otherwise, I would also recommend PT/OT evaluation, possible ECF rehab. Further recommendations to follow. MMODL / IJN: [id number] / MTDD
[2024-02-05 08:43] VITALS: RESP 18
[2024-02-05 08:51] LABS: Basophils # (A) 0.02 X 10*3/uL (0.00-0.10); Basophils % (A) 0.2 %; Eosinophils # (A) 0.16 X 10*3/uL (0.04-0.35); Eosinophils % (A) 1.7 %; HCT 31.7 % (37.2-46.3); HGB 10.9 g/dL (12.0-15.0); Lymphocytes # (A) 1.07 X 10*3/uL (0.90-5.00); Lymphocytes % (A) 11.3 %; MCH 34.7 pg (27.0-32.0); MCHC 34.4 g/dL (32.0-37.0); Mean Platelet Volume 10.8 FL (9.5-12.2); Monocytes # (A) 0.83 X 10*3/uL (0.20-1.00); Monocytes % (A) 8.8 %; NRBC Per 100 WBC 0 X 10*3/uL (0.00-0.01); Neutrophils # (A) 7.33 X 10*3/uL (1.80-7.70); Neutrophils % (A) 77.6 %; Platelet Count 144 X 10*3/uL (140-440); RBC 3.14 X 10*6/uL (4.10-5.20); RDW 13.2 % (11.5-14.5); WBC 9.45 X 10*3/uL (4.50-10.00)
[2024-02-05 08:56] LABS: BUN/Creat Ratio 16.75 Ratio (12.00-20.00); Blood Urea Nitrogen 6.7 mg/dL (9.0-27.0); Carbon Dioxide 22.7 mmol/L (21.6-31.8); Chloride 96 mmol/L (96-109); Glucose 92 mg/dL (70-110); Potassium 3.8 mmol/L (3.5-5.5); Sodium 130 mmol/L (135-145)
--- NOTE | 2024-02-05 09:38 | P.PN ---
Subjective Progress Note Date: 02/05/24 Principal diagnosis: Postop right hip intertrochanteric nail. This is a 78-year-old female who is postop day #2 status post closed reduction with insertion of intertrochanteric nail of the right hip. She has no new complaints or concerns today. Vital signs are stable. Objective - Vital Signs Vital signs: Vital Signs Temp 98.3 F 02/05/24 07:23 Pulse 68 02/05/24 07:23 Resp 18 02/05/24 07:23 BP 105/69 02/05/24 07:23 Pulse Ox 93 L 02/05/24 07:23 FiO2 Intake & Output 02/04/24 02/05/24 02/05/24 18:59 06:59 18:59 Intake Total 370 Output Total 950 Balance -580 Intake: Oral 370 Output: Urine 950 Other: Voiding Method External Catheter External Catheter # Voids 4 1 - Exam This is a pleasant 78-year-old female in no acute distress. She is alert and oriented x 3. Exam of the right hip reveals that her dressing is clean, dry and intact. She has full foot and ankle motion without difficulty or pain. Neurovascular status to the right lower extremity is intact. - Labs CBC & Chem 7: 02/05/24 05:31 02/05/24 05:31 Labs: Abnormal Lab Results - Last 24 Hours (Table) 02/05/24 02/05/24 Range/Units 05:31 05:31 RBC 3.14 L (4.10-5.20) X 10*6/uL Hgb 10.9 L (12.0-15.0) g/dL Hct 31.7 L (37.2-46.3) % MCV 101.0 H (80.0-97.0) FL MCH 34.7 H (27.0-32.0) pg Sodium 130 L (135-145) mmol/L BUN 6.7 L (9.0-27.0) mg/dL Creatinine 0.4 L (0.6-1.5) mg/dL Calcium 8.0 L (8.7-10.3) mg/dL Assessment and Plan (1) Fall Current Visit: Yes Status: Acute Code(s): W19.XXXA - UNSPECIFIED FALL, INITIAL ENCOUNTER SNOMED Code(s): 2125161 (2) Fracture, intertrochanteric, right femur Current Visit: Yes Status: Acute Code(s): S72.141A - DISPLACED I NTERTROCHANTERIC FRACTURE OF RIGHT FEMUR, INIT SNOMED Code(s): 745991021 Plan: The clinical findings are discussed with the patient. We will begin physical therapy today. Evaluation for possible inpatient rehab.
--- NOTE | 2024-02-05 09:40 | P.DS ---
Providers Date of admission: 02/02/24 12:15 Expected date of discharge: 02/05/24 Attending physician: Osbaldo Henderson Consults: 02/02/24 12:00 Consult Physician Urgent Consulting Provider: Luis Felipe Nevarez Consult Reason/Comments: Surgical clearance, medical management Do you want consulting provider notified?: Yes 02/04/24 14:45 Consult Physician Routine Consulting Provider: Dat Weber Consult Reason/Comments: evaluate for inpatient rehab Do you want consulting provider notified?: Yes Primary care physician: Stated None - Discharge Diagnosis(es) (1) Fall Current Visit: Yes Status: Acute (2) Fracture, intertrochanteric, right femur Current Visit: Yes Status: Acute Hospital Course: This is a 78-year-old female who is admitted to [facility] on 02/02/2024 after falling and sustaining injury to the right hip. On exam and x- ray in the emergency department he is found to have an intertrochanteric fracture of the right hip. He is admitted to our service for surgical intervention and care. Patient is taken to surgery for close reduction and insertion of intertrochanteric nail of the right hip. The procedure was performed without complication or sequelae. The patient is doing fairly well postoperatively. Vital signs and labs are stable on postoperative day # 2. Patient is discharged to inpatient rehab in good condition. Please see med rec for accurate list of discharge medications. Patient Condition at Discharge: Fair Plan - Discharge Summary Discharge Rx Participant: No New Discharge Prescriptions: New HYDROcodone/APAP 5-325MG [Lorimor 5-325] 1 - 2 tab PO Q6HR PRN #32 tab PRN Reason: Pain Sennosides-Docusate Sodium [Senokot-S] 1 tab PO BID #60 tablet Aspirin [Adult Low Dose Aspirin EC] 81 mg PO BID #1 tab No Action Cholecalciferol [Vitamin D3 (25 Mcg = 1000 Iu)] 50 mcg PO DAILY amLODIPine BESYLATE/BENAZEPRIL [amLODIPine BESYLATE/BENAZEPRIL 10-20 mg] 1 cap PO DAILY Levothyroxine Sodium [Synthroid] 100 mcg PO AC-BRKFST Discharge Medication List Cholecalciferol [Vitamin D3 (25 Mcg = 1000 Iu)] 50 mcg PO DAILY 02/02/24 [History] Levothyroxine Sodium [Synthroid] 100 mcg PO AC-BRKFST 02/02/24 [History] amLODIPine BESYLATE/BENAZEPRIL [amLODIPine BESYLATE/BENAZEPRIL 10-20 mg] 1 cap PO DAILY 02/02/24 [History] Aspirin [Adult Low Dose Aspirin EC] 81 mg PO BID #1 tab 02/03/24 [Rx] HYDROcodone/APAP 5-325MG [Lorimor 5-325] 1 - 2 tab PO Q6HR PRN #32 tab 02/03/24 [Rx] Sennosides-Docusate Sodium [Senokot-S] 1 tab PO BID #60 tablet 02/03/24 [Rx] Follow up Appointment(s)/Referral(s): Lorenza Hurtado, PAC [PHYSICIAN CONTENT DEVELOPMENT SPECIALIST] - 3 Weeks None,Stated [Primary Care Provider] - 1-2 days Activity/Diet/Wound Care/Special Instructions: 50% wt bearing JERAMIE aldrich. May shower 48h post op. Change telfa and tegaderm dressing as needed.
[2024-02-05] MEDS: MAGNESIUM HYDROXIDE 2,400 MG/30 ML CUP PO PRN (10:00)
[2024-02-05 15:23] VITALS: BP 108/75; PULSE 69; TEMP 97.8
--- NOTE | 2024-02-06 05:09 | PN ---
PROGRESS NOTE DATE OF SERVICE: 02/05/2024 SUBJECTIVE: This is a 78-year-old woman who had a hip fracture and surgery, is being slated for rehab at this time. No chest pain, no palpitations, no fever. OBJECTIVE: VITAL SIGNS: Pulse is 68, blood pressure 105/62, respirations 18. CHEST: Clear to auscultation. CARDIOVASCULAR: S1, S2. ABDOMEN: Soft. NERVOUS SYSTEM: No focal deficits. LABORATORY DATA: Reviewed. ASSESSMENT: 1. Right hip intertrochanteric fracture, closed reduction, intramedullary nailing using Synthes nail. 2. Hypertension. 3. Hypothyroidism. 4. Gait dysfunction. RECOMMENDATIONS: Recommended to continue current management, continue symptomatic treatment, resume the home medications. Rest of the recommendations per Orthopedic surgery. Further recommendations to follow. MMODL / IJN: [id number] /
== END 2024-02-05 18:48 | DRG 481 ==
LOC: EC 11:27 → 4SSUR 12:15
PROVIDERS: ADMIT Orthopaedic Surgery; ATTEND Orthopaedic Surgery
PROC: 0QS636Z Reposition Right Upper Femur with Intramedullary Internal Fixation Device, Percutaneous Approach (ICD-10-PCS; principal; 2024-02-02)
PROC: 3E0T3BZ Introduction of Anesthetic Agent into Peripheral Nerves and Plexi, Percutaneous Approach (ICD-10-PCS; 2024-02-02)
DX: S72.141A Displaced intertrochanteric fracture of right femur, initial encounter for closed fracture (principal); E87.1 Hypo-osmolality and hyponatremia; E03.9 Hypothyroidism, unspecified; R26.2 Difficulty in walking, not elsewhere classified; Z79.890 Hormone replacement therapy; E53.8 Deficiency of other specified B group vitamins; E86.1 Hypovolemia; W19.XXXA Unspecified fall, initial encounter; F17.210 Nicotine dependence, cigarettes, uncomplicated; I10 Essential (primary) hypertension; W18.09XA Striking against other object with subsequent fall, initial encounter; Z79.82 Long term (current) use of aspirin
CPT/HCPCS: 36415; 51702; 71045; 73501; 73502; 80048; 80053; 81003; 82607; 82747; 83880; 85025; 85610; 85730; 96361; 96374; 96375; 99285

== ENCOUNTER 2024-11-03 09:00 | Inpatient (IN) | payer MEDICARE ==
--- NOTE | 2024-11-03 09:12 | ED ---
General Adult HPI - General Stated complaint: Fall Time Seen by Provider: 11/03/24 09:04 Source: patient, EMS, RN notes reviewed Mode of arrival: EMS Limitations: no limitations - History of Present Illness Initial comments: 79-year-old female presents emergency department complaint of left hip pain. Patient states she tripped over her walker that she uses at nighttime and fell onto her left hip. Patient denies any head injury no loss conscious. Patient complains of left hip pain unable to ambulate. She states she had a fall last year with a fracture and surgical repair. Patient denies any back pain no bowel bladder incontinence retention no blood thinners. - Related Data Home Medications Medication Instructions Recorded Confirmed Levothyroxine Sodium [Synthroid] 100 mcg PO DAILY 02/02/24 11/03/24 amLODIPine BESYLATE/BENAZEPRIL 1 cap PO DAILY 02/02/24 11/03/24 [amLODIPine BESYLATE/BENAZEPRIL 10-20 mg] Calcium Carbonate/Vitamin D3 1 tab PO DAILY 11/03/24 11/03/24 [Calcium 600 mg-Vit D3 10 mcg (400 Unit)] Cyanocobalamin [Vitamin B-12] 1,000 mcg PO DAILY 11/03/24 11/03/24 Famotidine [Pepcid] 20 mg PO BID PRN 11/03/24 11/03/24 Allergies Allergy/AdvReac Type Severity Reaction Status Date / Time No Known Allergies Allergy Verified 11/03/24 10:40 Review of Systems ROS Statement: Those systems with pertinent positive or pertinent negative responses have been documented in the HPI. ROS Other: All systems not noted in ROS Statement are negative. Past Medical History Past Medical History: Hypertension, Thyroid Disorder History of Any Multi-Drug Resistant Organisms: None Reported Past Surgical History: Orthopedic Surgery Additional Past Surgical History / Comment(s): R hip Past Anesthesia/Blood Transfusion Reactions: No Reported Reaction Past Psychological History: No Psychological Hx Reported Smoking Status: Current every day smoker Past Alcohol Use History: Occasional Past Drug Use History: None Reported General Exam Limitations: no limitations General appearance: alert, in no apparent distress Head exam: Present: atraumatic, normocephalic, normal inspection Eye exam: Present: normal appearance, PERRL, EOMI. Absent: scleral icterus, conjunctival injection, periorbital swelling ENT exam: Present: normal exam, normal oropharynx, mucous membranes moist Neck exam: Present: normal inspection, full ROM. Absent: tenderness, meningismus, lymphadenopathy Respiratory exam: Present: normal lung sounds bilaterally. Absent: respiratory distress, wheezes, rales, rhonchi, stridor Cardiovascular Exam: Present: regular rate, normal rhythm, normal heart sounds. Absent: systolic murmur, diastolic murmur, rubs, gallop, clicks Extremities exam: Present: other (Left hip there is shortening, malrotation, tenderness of the patient neurovascular intact) Back exam: Present: full ROM. Absent: tenderness Course Vital Signs 11/03/24 11/03/24 09:05 10:07 Temperature 98 F Pulse Rate 69 71 Respiratory 20 20 Rate Blood Pressure 132/82 135/81 O2 Sat by Pulse 94 L 93 L Oximetry EKG Findings - EKG Comments: EKG Findings:: EKG performed at 10: 24 sinus rhythm rate 64 SC 145 QRS 98 QT/QTc 397/407 - EKG Results: EKG: interpreted by MARIE Medical Decision Making - Medical Decision Making Was pt. sent in by a medical professional or institution (Dr. PA, SOFTWARE DEVELOPER MANAGER, urgent care, hospital, or usp...) When possible be specific @ -[No] Did you speak to anyone other than the patient for history (EMS, parent, family, police, friend...)? What history was obtained from this source @ -[No] Did you review nursing and triage notes (agree or disagree)? Why? @ -[I reviewed and agree with nursing and triage notes] Were old charts reviewed (outside hosp., previous admission, EMS record, old EKG, old radiological studies, urgent care reports/EKG's, usp records)? Report findings @ -[No old charts were reviewed] Differential Diagnosis (chest pain, altered mental status, abdominal pain women, abdominal pain men, vaginal bleeding, weakness, fever, dyspnea, syncope, headache, dizziness, GI bleed, back pain, seizure, CVA, palpatations, mental health, musculoskeletal)? @ -Fall, hip contusion, hip fracture, pelvis fracture EKG interpreted by me (3pts min.). @ -[As above] X-rays interpreted by me (1pt min.). @ -xray chest 1 view no acute abnormality no pneumothorax, no acute cardiopulmonary process X-ray left hip with AP pelvis showing left surgical neck fracture CT interpreted by me (1pt min.). @ -[None done] U/S interpreted by me (1pt. min.). @ -[None done] What testing was considered but not performed or refused? (CT, X-rays, U/S, labs)? Why? @ -[None] What meds were considered but not given or refused? Why? @ -[None] Did you discuss the management of the patient with other professionals (professionals i.e. , PA, SOFTWARE DEVELOPER MANAGER, lab, RT, psych nurse, social worker psychiatric, physical therapy instructor, teacher, environmental health officer, skilled nursing case manager)? Give summary @ -Dr. Guillermo for admission, patient had prior surgery by Dr. Herrera. Was smoking cessation discussed for >3mins.? @ -[No] Was critical care preformed (if so, how long)? @ -[No] Were there social determinants of health that impacted care today? How? (Homelessness, low income, unemployed, alcoholism, drug addiction, alvarado sportation, low edu. Level, literacy, decrease access to med. care, half-way, rehab)? @ -[No] Was there de-escalation of care discussed even if they declined (Discuss DNR or withdrawal of care, Hospice)? DNR status @ -[No] What co-morbidities impacted this encounter? (DM, HTN, Smoking, COPD, CAD, Cancer, CVA, ARF, Chemo, Hep., AIDS, mental health diagnosis, sleep apnea, morbid obesity)? @ -[Hypothyroidism Was patient admitted / discharged? Hospital course, mention meds given and route, prescriptions, significant lab abnormalities, going to OR and other pertinent info. @ -Admitted patient presented after a fall. Patient has a left hip fracture admitted with medical management and surgical clearance. Undiagnosed new problem with uncertain prognosis? @ -[No] Drug Therapy requiring intensive monitoring for toxicity (Heparin, Nitro, Insulin, Cardizem)? @ -[No] Were any procedures done? @ -[No] Diagnosis/symptom? @ -Left hip fracture Acute, or Chronic, or Acute on Chronic? @ -Acute Uncomplicated (without systemic symptoms) or Complicated (systemic symptoms)? @ -complicated Side effects of treatment? @ -[No] Exacerbation, Progression, or Severe Exacerbation? @ -[No] Poses a threat to life or bodily function? How? (Chest pain, USA, MT, pneumonia, PE, COPD, DKA, ARF, appy, cholecystitis, CVA, Diverticulitis, Homicidal, Suicidal, threat to staff... and all critical care pts) @ -yes Surgical risk - Lab Data Result diagrams: 11/03/24 09:00 11/03/24 09:00 Lab Results 11/03/24 11/03/24 11/03/24 Range/Units 09:00 09:00 09:00 WBC 10.1 (3.8-10.6) k/uL RBC 3.94 (3.80-5.40) m/uL Hgb 13.9 (11.4-16.0) gm/dL Hct 41.7 (34.0-46.0) % MCV 105.9 H (80.0-100.0) fL MCH 35.3 H (25.0-35.0) pg MCHC 33.3 (31.0-37.0) g/dL RDW 13.1 (11.5-15.5) % Plt Count 189 (150-450) k/uL MPV 7.6 Neutrophils % 83 % Lymphocytes % 9 % Monocytes % 6 % Eosinophils % 1 % Basophils % 0 % Neutrophils # 8.4 H (1.3-7.7) k/uL Lymphocytes # 0.9 L (1.0-4.8) k/uL Monocytes # 0.6 (0-1.0) k/uL Eosinophils # 0.1 (0-0.7) k/uL Basophils # 0.0 (0-0.2) k/uL Macrocytosis Moderate PT 10.9 (10.0-12.5) sec INR 1.0 (<1.2) APTT 23.6 (22.0-30.0) sec Sodium 132 L (137-145) mmol/L Potassium 4.0 (3.5-5.1) mmol/L Chloride 100 (98-107) mmol/L Carbon Dioxide 25 (22-30) mmol/L Anion Gap 7 mmol/L BUN 7 (7-17) mg/dL Creatinine 0.49 L (0.52-1.04) mg/dL Est GFR (CKD-EPI)AfAm >90 (>60 ml/min/1.73 sqM) Est GFR (CKD-EPI)NonAf >90 (>60 ml/min/1.73 sqM) Glucose 96 (74-99) mg/dL Calcium 8.5 (8.4-10.2) mg/dL Total Bilirubin 1.2 (0.2-1.3) mg/dL AST 27 (14-36) U/L ALT 18 (4-34) U/L Alkaline Phosphatase 65 (38-126) U/L Total Protein 5.9 L (6.3-8.2) g/dL Albumin 3.8 (3.5-5.0) g/dL Urine Color Urine Appearance (Clear) Urine pH (5.0-8.0) Ur Specific [place] (1.001-1.035) Urine Protein (Negative) Urine Glucose (UA) (Negative) Urine Ketones (Negative) Urine Blood (Negative) Urine Nitrite (Negative) Urine Bilirubin (Negative) Urine Urobilinogen (<2.0) mg/dL Ur Leukocyte Esterase (Negative) 11/03/24 Range/Units 10:10 WBC (3.8-10.6) k/uL RBC (3.80-5.40) m/uL Hgb (11.4-16.0) gm/dL Hct (34.0-46.0) % MCV (80.0-100.0) fL MCH (25.0-35.0) pg MCHC (31.0-37.0) g/dL RDW (11.5-15.5) % Plt Count (150-450) k/uL MPV Neutrophils % % Lymphocytes % % Monocytes % % Eosinophils % % Basophils % % Neutrophils # (1.3-7.7) k/uL Lymphocytes # (1.0-4.8) k/uL Monocytes # (0-1.0) k/uL Eosinophils # (0-0.7) k/uL Basophils # (0-0.2) k/uL Macrocytosis PT (10.0-12.5) sec INR (<1.2) APTT (22.0-30.0) sec Sodium (137-145) mmol/L Potassium (3.5-5.1) mmol/L Chloride (98-107) mmol/L Carbon Dioxide (22-30) mmol/L Anion Gap mmol/L BUN (7-17) mg/dL Creatinine (0.52-1.04) mg/dL Est GFR (CKD-EPI)AfAm (>60 ml/min/1.73 sqM) Est GFR (CKD-EPI)NonAf (>60 ml/min/1.73 sqM) Glucose (74-99) mg/dL Calcium (8.4-10.2) mg/dL Total Bilirubin (0.2-1.3) mg/dL AST (14-36) U/L ALT (4-34) U/L Alkaline Phosphatase (38-126) U/L Total Protein (6.3-8.2) g/dL Albumin (3.5-5.0) g/dL Urine Color Colorless Urine Appearance Clear (Clear) Urine pH 7.0 (5.0-8.0) Ur Specific [place] 1.007 (1.001-1.035) Urine Protein Negative (Negative) Urine Glucose (UA) Negative (Negative) Urine Ketones 1+ H (Negative) Urine Blood Negative (Negative) Urine Nitrite Negative (Negative) Urine Bilirubin Negative (Negative) Urine Urobilinogen <2.0 (<2.0) mg/dL Ur Leukocyte Esterase Negative (Negative) Disposition Clinical Impression: Fall, Hip fracture, left Disposition: ADMITTED IP TO THIS HOSP Condition: Fair Time of Disposition: 10:12
[2024-11-03 09:23] LABS: Basophils % (A) 0 %; Eosinophils # (A) 0.1 k/uL (0-0.7); Eosinophils % (A) 1 %; HCT 41.7 % (34.0-46.0); HGB 13.9 gm/dL (11.4-16.0); Lymphocytes # (A) 0.9 k/uL (1.0-4.8); Lymphocytes % (A) 9 %; MCH 35.3 pg (25.0-35.0); MCHC 33.3 g/dL (31.0-37.0); MCV 105.9 fL (80.0-100.0); Macrocytosis Moderate; Mean Platelet Volume 7.6; Monocytes # (A) 0.6 k/uL (0-1.0); Monocytes % (A) 6 %; Neutrophils # (A) 8.4 k/uL (1.3-7.7); Neutrophils % (A) 83 %; Platelet Count 189 k/uL (150-450); RBC 3.94 m/uL (3.80-5.40); RDW 13.1 % (11.5-15.5); WBC 10.1 k/uL (3.8-10.6)
[2024-11-03 09:32] LABS: ALT 18 U/L (4-34); AST 27 U/L (14-36); African American GFR (CKD) >90 (>60 ml/min/1.73 sqM); Albumin 3.8 g/dL (3.5-5.0); Alkaline Phosphatase 65 U/L (38-126); Anion Gap 7 mmol/L; Blood Urea Nitrogen 7 mg/dL (7-17); Calcium 8.5 mg/dL (8.4-10.2); Carbon Dioxide 25 mmol/L (22-30); Chloride 100 mmol/L (98-107); Glucose 96 mg/dL (74-99); Non-African American GFR(CKD) >90 (>60 ml/min/1.73 sqM); Sodium 132 mmol/L (137-145); Total Bilirubin 1.2 mg/dL (0.2-1.3); Total Protein 5.9 g/dL (6.3-8.2)
[2024-11-03 09:38] LABS: Partial Thromboplastin Time 23.6 sec (22.0-30.0); Prothrombin Time 10.9 sec (10.0-12.5)
[2024-11-03] MEDS: HYDROmorphone 0.5 MG/0.5 ML SYRINGE IVP STA (09:59)
--- NOTE | 2024-11-03 09:59 | XR ---
EXAMINATION TYPE: XR Hip LT and AP Pelvis DATE OF EXAM: 11/03/2024 9:44 AM COMPARISON: 02/02/2024 CLINICAL INDICATION: Female, 79 years old with history of pain, pain TECHNIQUE: XR Hip LT and AP Pelvis; hip was examined in the frontal and lateral projections and a AP pelvis. FINDINGS: Deformity left proximal hip with varus deformity present. No additional fractures identifie d. Mild degeneration changes of the spine. Fixation hardware in the right hip appears intact. IMPRESSION: Left proximal hip fracture with varus deformity is suspected. Correlate with pain. [facility], , 11/03/2024 9:57 AM
--- NOTE | 2024-11-03 10:04 | XR ---
EXAMINATION TYPE: XR chest 1V DATE OF EXAM: 11/03/2024 9:44 AM COMPARISON: Chest radiographs from 02/02/2024 CLINICAL INDICATION: Female, 79 years old with history of preop; pain TECHNIQUE: XR chest 1V Frontal view of the chest. FINDINGS: Lungs/Pleura: There is flattening of the diaphragm with increased lucency of the lungs. No evidence o f pneumothorax, pleural effusion or focal consolidation. Pulmonary vascularity: Unremarkable. Heart/mediastinum: Cardiomediastinal silhouette is unremarkable. Musculoskeletal: No acute osseous pathology. IMPRESSION: 1. No acute cardiopulmonary disease process. 2. COPD changes. [facility], , 11/03/2024 10:02 AM
[2024-11-03] MEDS: ONDANSETRON 4 MG/2 ML VIAL IVP STA (10:05)
[2024-11-03] MEDS ORDERED: NALOXONE 0.4 MG/ML 1 ML VIAL IV PRN (10:12)
[2024-11-03 10:21] LABS: Appearance,Urine Clear (Clear); Bilirubin,Urine Negative (Negative); Blood,Urine Negative (Negative); Color,Urine Colorless; Glucose,Urine (UA) Negative (Negative); Ketones,Urine 1+ (Negative); Leukocyte Esterase,Urine Negative (Negative); Nitrite,Urine Negative (Negative); Protein,Urine Negative (Negative); Specific Gravity,Urine 1.007 (1.001-1.035); Urobilinogen,Urine <2.0 mg/dL (<2.0)
[2024-11-03] MEDS ORDERED: FAMOTIDINE 20 MG TAB PO PRN (12:40)
[2024-11-03] MEDS: HYDROmorphone 0.5 MG/0.5 ML SYRINGE IVP PRN (13:44)
[2024-11-03] MEDS: HYDROcodone/APAP 5-325MG 1 EACH TAB PO PRN (16:33)
--- NOTE | 2024-11-03 18:10 | P.CONS ---
History of Present Illness - Reason for Consult Consult date: 11/03/24 - Chief Complaint preoperative clearance, medical management - History of Present Illness 79 year old woman with history of hypertension, hypothyroidism, B12 deficiency presented for evaluation of hip fracture. Medicine was consulted by orthopedic surgery for preoperative clearance and medical management. Patient's only complaint is pain at this time. She denies any history of heart attack or stroke, coronary artery disease. She walks with a walker at home, but is able to do her own gardening in the summer and laundry and other house chores, METS estimate is greater than 4. She has had surgeries before and has never had a negative reaction to anesthesia. She is not on any blood thinners. She denies chest pain, palpitations, lower extremity edema, syncope, presyncope, cough, dyspnea. Today, patient is afebrile, 132/82, heart rate 69, 94% on room air. CBC shows elevated MCV of 105.9, otherwise unremarkable. Basic metabolic panel shows hyponatremia to 132, otherwise unremarkable. Liver function tests are unremarkable. Urinalysis shows 1+ ketones, otherwise unremarkable. Chest x-ray shows no acute cardiopulmonary disease process, possible COPD changes. EKG shows normal sinus rhythm, low voltage overall, left axis deviation. Hip/pelvis x-ray shows left proximal hip fracture with varus deformity. Patient was admitted to the orthopedic surgery service and medicine was consulted for preoperative clearance and medical management. All Systems reviewed and pertinent positives and negatives noted in HPI, all other symptoms are negative Gen: In NAD, non-toxic HEENT: normocephalic, atraumatic, hearing acuity is intant, mucous membranes moist CVS: perfusing all extremities well, no pitting edema, Respiratory: symmetric chest expansion, no accessory muscle use, GI: soft, NTTP, ND, : no suprapubic tenderness, no CVA tenderness MSK/Derm: no rashes, cyanosis Neuro: CN II-XII intact, no motor weakness, Psych: cooperative, euthymic mood, judgment and insight is intact Labs and imaging as above Assessment/plan: Preoperative clearance Left hip fracture -Patient is an intermediate risk for intermediate risk surgery -Okay to proceed to surgery without any further need of testing -Hold patient's home blood pressure medication until postoperative. -Daily CBC, basic metabolic panel, magnesium Hypertension Hypothyroidism B12 deficiency -Home medications reviewed and reconciled Patient is full code Past Medical History Past Medical History: Hypertension, Thyroid Disorder History of Any Multi-Drug Resistant Organisms: None Reported Past Surgical History: Orthopedic Surgery Additional Past Surgical History / Comment(s): R hip Past Anesthesia/Blood Transfusion Reactions: No Reported Reaction Past Psychological History: No Psychological Hx Reported Smoking Status: Current every day smoker Past Alcohol Use History: Occasional Past Drug Use History: None Reported Medications and Allergies Home Medications Medication Instructions Recorded Confirmed Type Levothyroxine Sodium [Synthroid] 100 mcg PO DAILY 02/02/24 11/03/24 History amLODIPine BESYLATE/BENAZEPRIL 1 cap PO DAILY 02/02/24 11/03/24 History [amLODIPine BESYLATE/BENAZEPRIL 10-20 mg] Calcium Carbonate/Vitamin D3 1 tab PO DAILY 11/03/24 11/03/24 History [Calcium 600 mg-Vit D3 10 mcg (400 Unit)] Cyanocobalamin [Vitamin B-12] 1,000 mcg PO DAILY 11/03/24 11/03/24 History Famotidine [Pepcid] 20 mg PO BID PRN 11/03/24 11/03/24 History Allergies Allergy/AdvReac Type Severity Reaction Status Date / Time No Known Allergies Allergy Verified 11/03/24 10:40 Physical Exam Osteopathic Statement: *. No significant issues noted on an osteopathic structural exam other than those noted in the History and Physical/Consult. Vitals: Vital Signs Temp Pulse Resp BP Pulse Ox 11/03/24 17:00 90 18 108/70 90 L 11/03/24 16:26 80 18 118/79 99 11/03/24 14:34 75 20 94 L 11/03/24 10:07 71 20 135/81 93 L 11/03/24 09:05 98 F 69 20 132/82 94 L Intake and Output 11/03/24 11/03/24 11/03/24 06:59 14:59 22:59 Other: Weight 58.967 kg Results CBC & Chem 7: 11/03/24 09:00 11/03/24 09:00 Labs: Abnormal Lab Results - Last 24 Hours (Table) 11/03/24 11/03/24 11/03/24 Range/Units 09:00 09:00 10:10 MCV 105.9 H (80.0-100.0) fL MCH 35.3 H (25.0-35.0) pg Neutrophils # 8.4 H (1.3-7.7) k/uL Lymphocytes # 0.9 L (1.0-4.8) k/uL Sodium 132 L (137-145) mmol/L Creatinine 0.49 L (0.52-1.04) mg/dL Total Protein 5.9 L (6.3-8.2) g/dL Urine Ketones 1+ H (Negative)
[2024-11-03] MEDS: BISMUTH SUBSALICYLATE 4,192 MG/240 ML BOTTLE PO PRN (21:16)
[2024-11-03] MEDS: SODIUM CHLORIDE 0.9% 1,000 ML IV SCH (23:00)
[2024-11-04] MEDS: LEVOTHYROXINE 100 MCG TAB PO SCH (06:22)
[2024-11-04] MEDS: CYANOCOBALAMIN 500 MCG TAB PO SCH (07:55)
[2024-11-04] MEDS: CALCIUM CARB-VIT D 500 MG-5 MCG TAB PO SCH (07:55)
--- NOTE | 2024-11-04 08:03 | P.HPOR ---
History of Present Illness H&P Date: 11/04/24 The patient is a very pleasant 79-year-old female with a medical history significant for smoking almost 1 pack of cigarettes a day and having had a prior right hip fracture who is presently admitted following a ground-level fall with a left hip fracture. The patient states that she sustained a fall resulting in left hip pain and an inability to ambulate. She was brought into the ER where x-rays showed a displaced subcapital femoral neck fracture. This morning she is complaining of isolated pain in her left hip. She states that after her right hip fracture she has had a slight decline in function and will use assistive device to ambulate. She smokes 1 pack of cigarettes in a day and a half and says she has no plans to quit. Past Medical History Past Medical History: Hypertension, Thyroid Disorder Additional Past Medical History / Comment(s): DVT right leg after surgrey, swelling in koko legs History of Any Multi-Drug Resistant Organisms: None Reported Past Surgical History: Orthopedic Surgery Additional Past Surgical History / Comment(s): R hip, left eye surgrey Past Anesthesia/Blood Transfusion Reactions: No Reported Reaction Past Psychological History: No Psychological Hx Reported Smoking Status: Current every day smoker Past Alcohol Use History: Occasional Additional Past Alcohol Use History / Comment(s): Start smoking at the age of 19. Smokes a packed every 48hr Past Drug Use History: None Reported Medications and Allergies Home Medications Medication Instructions Recorded Confirmed Type Levothyroxine Sodium [Synthroid] 100 mcg PO DAILY 02/02/24 11/03/24 History amLODIPine BESYLATE/BENAZEPRIL 1 cap PO DAILY 02/02/24 11/03/24 History [amLODIPine BESYLATE/BENAZEPRIL 10-20 mg] Calcium Carbonate/Vitamin D3 1 tab PO DAILY 11/03/24 11/03/24 History [Calcium 600 mg-Vit D3 10 mcg (400 Unit)] Cyanocobalamin [Vitamin B-12] 1,000 mcg PO DAILY 11/03/24 11/03/24 History Famotidine [Pepcid] 20 mg PO BID PRN 11/03/24 11/03/24 History Allergies Allergy/AdvReac Type Severity Reaction Status Date / Time No Known Allergies Allergy Verified 11/03/24 10:40 Physical Examination The patient is resting comfortably in her bed. She is alert and able to answer questions. Her head is normocephalic and atraumatic. She demonstrates nonlabored breathing with symmetric chest expansion. Her bilateral upper extremities and right lower extremity are without deformity and are nontender to palpation. A focused exam of the left lower extremity was conducted. Her leg is shortened and externally rotated. The skin over the hip is intact with no s cars or lesions. Her thigh and calf are soft. There is pain with any attempts at passive range of motion. She is able to actively plantarflex and dorsiflex her ankle and her toes. Results X-rays of the pelvis and left hip show diffuse osteopenia and a displaced left subcapital femoral neck fracture. There is also a short intramedullary hip screw on the right with a healed intertrochanteric hip fracture - Labs Labs: Abnormal Lab Results - Last 24 Hours (Table) 11/03/24 11/03/24 11/03/24 Range/Units 09:00 09:00 10:10 MCV 105.9 H (80.0-100.0) fL MCH 35.3 H (25.0-35.0) pg Neutrophils # 8.4 H (1.3-7.7) k/uL Lymphocytes # 0.9 L (1.0-4.8) k/uL Sodium 132 L (137-145) mmol/L Creatinine 0.49 L (0.52-1.04) mg/dL Total Protein 5.9 L (6.3-8.2) g/dL Urine Ketones 1+ H (Negative) H & H 11/03/24 Range/Units 09:00 Hgb 13.9 (11.4-16.0) gm/dL Hct 41.7 (34.0-46.0) % Coagulation 11/03/24 Range/Units 09:00 INR 1.0 (<1.2) Result Diagrams: 11/03/24 09:00 11/03/24 09:00 Assessment and Plan Assessment: Left displaced subcapital femoral neck fracture History of prior right hip fracture fixed with a short intramedullary hip screw Diffuse osteopenia Current every day cigarette smoker Plan: I met with the patient to discuss her injury, x-rays, and surgical procedures to address her hip fracture. Given the patient's age, poor bone quality, state of health, and smoking status my recommendation is to perform a direct anterior hip hemiarthroplasty. We discussed the procedure at length including the potential risks and complications. The patient understands and wishes to agree. Will plan for surgery later today. In the interim she is to remain strictly nonweightbearing and on bedrest. The patient reports that she had a DVT following her right hip surgery and so we will treat her with Eliquis. Internal medicine has been consulted and their assistance with preoperative medical management is appreciated. Time with Patient: Greater than 30
[2024-11-04] MEDS: ONDANSETRON 4 MG/2 ML VIAL IVP PRN (08:47)
[2024-11-04 09:18] LABS: Blood Urea Nitrogen 11.5 mg/dL (9.0-27.0); Calcium 8.3 mg/dL (8.7-10.3); Carbon Dioxide 22.8 mmol/L (21.6-31.8); Chloride 100 mmol/L (96-109); Glucose 112 mg/dL (70-110); Sodium 134 mmol/L (135-145)
[2024-11-04 10:21] LABS: Basophils # (A) 0.01 X 10*3/uL (0.00-0.10); Basophils % (A) 0.1 %; Eosinophils # (A) 0.02 X 10*3/uL (0.04-0.35); Eosinophils % (A) 0.2 %; HCT 37.9 % (37.2-46.3); HGB 12.9 g/dL (12.0-15.0); Lymphocytes # (A) 0.94 X 10*3/uL (0.90-5.00); Lymphocytes % (A) 9.1 %; MCH 34.8 pg (27.0-32.0); MCV 102.2 FL (80.0-97.0); Mean Platelet Volume 10.6 FL (9.5-12.2); Monocytes # (A) 1.03 X 10*3/uL (0.20-1.00); NRBC Per 100 WBC 0 X 10*3/uL (0.00-0.01); Neutrophils % (A) 80.2 %; Platelet Count 166 X 10*3/uL (140-440); RBC 3.71 X 10*6/uL (4.10-5.20); RDW 13.6 % (11.5-14.5); WBC 10.34 X 10*3/uL (4.50-10.00)
[2024-11-04] MEDS: LACTATED RINGERS 1,000 ML BAG IV STA (13:40)
[2024-11-04] MEDS: DEXAMETHASONE SOD PHOSPHATE 4 MG/ML 1 ML VIAL IVP STA (13:42)
--- NOTE | 2024-11-04 14:39 | P.PN ---
Subjective Progress Note Date: 11/04/24 No new complaints today, plan for ORIF later in the evening. Gen: In NAD, non-toxic HEENT: normocephalic, atraumatic, hearing acuity is intant, mucous membranes moist CVS: perfusing all extremities well, no pitting edema, Respiratory: symmetric chest expansion, no accessory muscle use, GI: soft, NTTP, ND, : no suprapubic tenderness, no CVA tenderness MSK/Derm: no rashes, cyanosis Neuro: CN II-XII intact, no motor weakness, Psych: cooperative, euthymic mood, judgment and insight is intact Hospital Course: 79 year old woman with history of hypertension, hypothyroidism, B12 deficiency presented for evaluation of hip fracture. Medicine was consulted by orthopedic surgery for preoperative clearance and medical management. Patient is afebrile, 132/82, heart rate 69, 94% on room air. CBC shows elevated MCV of 105.9, otherwise unremarkable. Basic metabolic panel shows hyponatremia to 132, otherwise unremarkable. Liver function tests are unremarkable. Urinalysis shows 1+ ketones, otherwise unremarkable. Chest x-ray shows no acute cardiopulmonary disease process, possible COPD changes. EKG shows normal sinus rhythm, low voltage overall, left axis deviation. Hip/pelvis x-ray shows left proximal hip fracture with varus deformity. Patient was admitted to the orthopedic surgery service and medicine was consulted for preoperative clearance and medical management. Assessment/plan: Preoperative clearance Left hip fracture -Patient is an intermediate risk for intermediate risk surgery -Okay to proceed to surgery without any further need of testing -Hold patient's home blood pressure medication until postoperative. -Daily CBC, basic metabolic panel, magnesium Hypertension Hypothyroidism B12 deficiency -Home medications reviewed and reconciled Patient is full code Objective - Vital Signs Vital signs: Vital Signs Temp 99.1 F 11/04/24 13:05 Pulse 76 11/04/24 13:05 Resp 16 11/04/24 13:05 BP 126/72 11/04/24 13:05 Pulse Ox 98 11/04/24 13:05 FiO2 Intake & Output 11/03/24 11/04/24 11/04/24 18:59 06:59 18:59 Output Total 100 Balance -100 Weight 58.967 kg Output: Urine 100 Other: Voiding Method External Catheter External Catheter # Voids 1 - Labs CBC & Chem 7: 11/04/24 02:15 11/04/24 02:15 Labs: Abnormal Lab Results - Last 24 Hours (Table) 11/04/24 11/04/24 Range/Units 02:15 02:15 WBC 10.34 H (4.50-10.00) X 10*3/uL RBC 3.71 L (4.10-5.20) X 10*6/uL MCV 102.2 H (80.0-97.0) FL MCH 34.8 H (27.0-32.0) pg Neutrophils # 8.30 H (1.80-7.70) X 10*3/uL Monocytes # 1.03 H (0.20-1.00) X 10*3/uL Eosinophils # 0.02 L (0.04-0.35) X 10*3/uL Sodium 134 L (135-145) mmol/L Creatinine 0.5 L (0.6-1.5) mg/dL BUN/Creatinine Ratio 23.00 H (12.00-20.00) Ratio Glucose 112 H (70-110) mg/dL Calcium 8.3 L (8.7-10.3) mg/dL
[2024-11-04] MEDS ORDERED: SUCCINYLCHOLINE CHLORIDE 200 MG/10 ML VIAL IV ONE (14:50)
[2024-11-04] MEDS ORDERED: LIDOCAINE 1% INJ 10MG/ML (20 ML MDV) ONE (14:50)
[2024-11-04] MEDS ORDERED: fentaNYL (PF) 50 MCG/ML 2 ML AMP ONE (14:50)
[2024-11-04] MEDS ORDERED: GLYCOPYRROLATE 0.2 MG/ML 2 ML VIAL ONE (14:50)
[2024-11-04] MEDS ORDERED: NEOSTIGMINE 1 MG/ML 10 ML VIAL ONE (14:50)
[2024-11-04] MEDS ORDERED: ceFAZolin 1 GM/50 ML BAG (PMX) ONE (14:50)
[2024-11-04] MEDS ORDERED: TRANEXAMIC 1,000 MG/100ML-NACL PREMIX BAG ONE (14:50)
[2024-11-04] MEDS ORDERED: MIDAZOLAM 2 MG/2 ML VIAL ONE (14:50)
[2024-11-04] MEDS ORDERED: PROPOFOL 10 MG/ML 20 ML VIAL IV ONE (14:50)
[2024-11-04] MEDS ORDERED: ROCURONIUM 10 MG/ML (5 ML VIAL) IV ONE (14:50)
[2024-11-04] MEDS: IV FLUID CONTINUATION 1,000 ML IV ONE (14:52)
[2024-11-04] MEDS: SODIUM CHLORIDE 0.9% 100 ML with ceFAZolin 2,000 MG IV ONE (15:00)
[2024-11-04] MEDS: EPINEPHrine 2 MG in SODIUM CHLORIDE 0.9% 200 ML IV ONE (15:52)
[2024-11-04] MEDS: ROPIVACAINE/EPI/CLONIDINE/KET 50 ML SYRINGE MISCELLANE PRN (15:53)
[2024-11-04] MEDS ORDERED: HYDROcodone/APAP 10-325MG 1 EACH TAB PO PRN (17:04)
[2024-11-04] MEDS ORDERED: NALOXONE 0.4 MG/ML 1 ML VIAL IV PRN (17:04)
[2024-11-04] MEDS ORDERED: HYDROmorphone 0.5 MG/0.5 ML SYRINGE IVP PRN ×3 (17:04)
[2024-11-04] MEDS ORDERED: hydrOXYzine pamoate 25 MG CAP PO PRN (17:04)
--- NOTE | 2024-11-04 17:12 | P.OP ---
Date of Procedure: 11/04/24 Preoperative Diagnosis: 1. Displaced left subcapital femoral neck fracture 2. Prior right hip fracture treated with an intramedullary hip screw 3. Severe osteoporosis 4. Current everyday cigarette smoker 5. History of prior DVT Postoperative Diagnosis: Same Procedure(s) Performed: Left direct anterior hip hemiarthroplasty Implants: 1. Samira Accolade C Size # 4 Standard Offset Femoral Stem 2. Samira Bipolar Femoral head - 47 OD, -28 ID, +0 neck Anesthesia: SALINA, regional Surgeon: Marvin Guillermo Energy Management Specialist #1: James Santos Estimated Blood Loss (ml): 200 IV fluids (ml): 800 Pathology: none sent Condition: stable Disposition: PACU Indications for Procedure: I met with the patient and their family to discuss treatment options. The patient has a displaced femoral neck fracture and based on their age, activity level, and medical comorbidities I recommended a hip hemiarthroplasty to facilitate early mobilization. My recommendation was to perform the hemiarthroplasty through a direct anterior approach to help lower the risk of dislocation and improve postoperative recovery and use cemented fixation of the femoral component to reduce the risk of fracture and postoperative thigh pain. We discussed the potential risks and complications of a hemiarthroplasty for displaced femoral neck fracture at length. Risks discussed include are certainly not limited to risks from anesthesia, superficial infection requiring local wound care and possibly surgical debridement, deep periprosthetic joint infection and the treatment for this, damage to local blood vessels or nerves particularly the lateral femoral cutaneous nerve, intraoperative fracture, postoperative periprosthetic fracture, leg length discrepancy, hip dislocation, aseptic loosening, groin pain, thigh pain, progression of arthritis requiring conversion to total hip arthroplasty, complications related to cementing the component, an inability to regain preinjury level of function, DVT, PE, acute coronary event, stroke, pneumonia, urinary tract infection, failure to thrive, and possibly . The patient and their family understand that while these are the most common complications other less common complications are possible. They provided their verbal and written consent to go forward with surgery. Operative Findings: Displaced subcapital femoral neck fracture with large hemarthrosis Description of Procedure: The patient was identified in the preoperative holding area and the correct hip was marked with my initials. I reviewed the procedure and consent with the patient. All of their questions were answered. The patient was then brought back into the operating room by anesthesia. [facility] anesthesia was administered by the anesthesia team. Preoperative antibiotics and tranexamic acid were also given. After the patient was under anesthesia I examined their ankles to determine their preoperative leg length discrepancy. The skin over the anterior aspect of the hip was shaved to remove hair over the site of planned incision. Both feet and ankles were padded with webril and boots for the [place] were applied. The patient was then carefully transferred onto the [place] table. A perineal post was immediately placed. The arms were placed on arm holders and were well-padded. Both boots were secured to the spars on the [place] table. The patient was positioned so that the pelvis was centered over the post. Nonsterile drapes were applied. A timeout was performed identifying the correct patient, operative extremity, and procedure. At this point fluoroscopy was brought in to take preoperative images of the pelvis and operative hip. A metallic bar was used to create a bi-ischial line for use as a reference to leg length adjustments during the procedure. Global offset was also measured on both the operative and nonoperative leg. Fluoroscopy was then brought out and a pre-scrub using a chlorhexidine scrub brush was performed. The operative limb was then prepped and draped in the standard sterile fashion. An anterior longitudinal incision was made lateral and distal to the ASIS. The skin and subcutaneous tissues were incised sharply. The underlying tensor fascia was identified and incised in its midportion. The fascia was dissected free from the underlying muscle and the muscle belly was retracted. A blunt tipped cobra retractor was placed over the superior neck under the muscle fibers of the gluteus minimus. The deep enveloping fascia of the tensor was incised. The anterior leash of vessels were then identified and cauterized. The fascia between the rectus and the capsule was then incised and the pre-capsular fat was excised. A second Cobra was placed inferior to the neck. The interval between the rectus and iliocapsularis and the hip capsule was developed and a retractor was placed carefully over the anterior rim of the acetabulum. A T-shaped anterior capsulotomy was performed. A hemarthrosis consistent with a femoral neck fracture was identified. The superior capsular leaflet was left in place in the inferior capsular flap was excised. The Cobra retractors were placed intracapsularly. A displaced femoral neck fracture was then identified. We then made a femoral neck osteotomy according to preoperative and intraoperative templating and confirmed the level of the osteotomy using fluoroscopic imaging. The femoral head was removed, passed off to the back table, and sized. The superior capsular flap was excised. On inspection of the acetabulum there were minimal degenerative changes with intact cartilage. Attention was then turned to the femur. The remnant dorsal lateral capsule was excised. The short external rotators were visible and protected. A bone hook was used to confirm appropriate translation of the trochanter away from the acetabulum. The leg was then extended and adducted and the bone hook was used to elevate the femur for broaching. A box osteotome and blunt tipped canal sound was then utilized to gain access to the femoral canal. We then sequentially broached the femur in appropriate anteversion until torsional stability was achieved and the implant was felt to have reached the appropriate size to allow trialing. The neck cut was brought flush to the trial broach with a calcar planar. A trial neck and head were then placed onto the broach and the hip was atraumatically reduced under direct visualization. External rotation to 90 was performed to assess stability. Fluoroscopy was brought in. An AP and lateral fluoroscopic image of the proximal femur was obtained to assess position and fill of the trial broach. An AP of the pelvis was then obtained and matched to the preoperative image taken. A bi-ischial bar was then placed and measurements were taken to assess changes in length and offset. The hip was then carefully dislocated, the proximal femur was exposed, and the trial implants were removed. The proximal femur was then prepared for cementing. The canal was thoroughly irrigated with pulsatile lavage to remove blood and marrow contents. A cement restrictor was placed to a depth just distal to the tip of t he final implant. Epinephrine-soaked gauze was then packed into the proximal femur. 2 bags of cement with antibiotics were then mixed using a centrifuge and placed into a cement gun. Anesthesia was notified that cementing was about to commence to make sure the patient was appropriately ventilated and hydrated. Once the cement had reached appropriate consistency, the cement gun was used to fill the canal in a retrograde fashion starting at the restrictor. Cement was then pressurized into the canal with a blue tipped observatory director. The stem was then carefully introduced into the cement taking care to guide the implant into appropriate version. The stem was held in position until the cement had fully set. All extra cement was removed while the cement was hardening. The trunnion was cleansed and the final head was tapped into place to engage the Echols taper. The acetabulum was irrigated and visualized to be free of debris. The hip was carefully reduced. Stability was checked clinically with external rotation to 90 and there was no evidence of instability. Final fluoroscopic images were taken. The wound was then thoroughly irrigated with Irrisept. 3 L of sterile saline was irrigated through the wound using pulsatile lavage. Local anesthetic cocktail was injected into the soft tissues around the surgical field. A deep drain was placed. The wound was then closed in layers. A sterile dressing was placed over the surgical incision and drain site. The drapes were taken down and the patient was carefully transferred off of the [place] table. Following removal of the boots the leg lengths felt acceptable. The patient was then taken to recovery room having tolerated the procedure well. James Santos PA-C was required as a skilled medical assistant float due to the complexity of surgery for patient positioning, draping, exposure, retraction, closure of wound and application of dressing. PLAN: The patient can weight-bear as tolerated on the operative extremity. 2 doses of postoperative antibiotics. DVT prophylaxis with Eliquis 2.5 mg BID. Physical therapy for gait training.
--- NOTE | 2024-11-04 17:31 | XR ---
Fluoroscopy INDICATION: Pain FINDINGS: Fluoroscopy time: 35.3 seconds. Total dose area product (DAP) in uGy*m?, mGy*cm? (or similar): 1.1078 Images obtained: 6. Images demonstrate placement of a left hip prosthesis IMPRESSION: 1. Documentation of fluoroscopy. [facility], , 11/04/2024 5:29 PM
[2024-11-04] MEDS: SODIUM CHLORIDE 0.9% 1,000 ML IV ONE (17:55)
--- NOTE | 2024-11-04 18:46 | FL ---
Fluoroscopy INDICATION: Pain FINDINGS: Fluoroscopy time: 35.3 seconds. Total dose area product (DAP) in uGy*m?, mGy*cm? (or similar): 1.1078 Images obtained: 0. IMPRESSION: 1. Documentation of fluoroscopy. [facility], , 11/04/2024 6:43 PM
[2024-11-04 19:33] LABS: Basophils % (A) 0 %; Eosinophils % (A) 0 %; HCT 41.4 % (34.0-46.0); HGB 13.3 gm/dL (11.4-16.0); Lymphocytes # (A) 0.3 k/uL (1.0-4.8); Lymphocytes % (A) 3 %; MCH 34.8 pg (25.0-35.0); MCHC 32.2 g/dL (31.0-37.0); MCV 108.1 fL (80.0-100.0); Macrocytosis Moderate; Mean Platelet Volume 8.8; Monocytes # (A) 0.3 k/uL (0-1.0); Monocytes % (A) 3 %; Neutrophils # (A) 10.4 k/uL (1.3-7.7); Neutrophils % (A) 94 %; Platelet Count 161 k/uL (150-450); RBC 3.83 m/uL (3.80-5.40); RDW 13.5 % (11.5-15.5)
[2024-11-04] MEDS: SENNOSIDES-DOCUSATE SODIUM 1 EACH TAB PO SCH (22:10)
[2024-11-05] MEDS: ACETAMINOPHEN TAB 325 MG TAB PO PRN (06:16)
[2024-11-05] MEDS: APIXABAN 2.5 MG TABLET PO SCH (08:18)
[2024-11-05 10:00] LABS: BUN/Creat Ratio 23.71 Ratio (12.00-20.00); Blood Urea Nitrogen 16.6 mg/dL (9.0-27.0); Calcium 8.2 mg/dL (8.7-10.3); Carbon Dioxide 20.8 mmol/L (21.6-31.8); Chloride 99 mmol/L (96-109); Glucose 101 mg/dL (70-110); Magnesium 1.7 mg/dL (1.5-2.4); Potassium 4.1 mmol/L (3.5-5.5); Sodium 131 mmol/L (135-145)
[2024-11-05 11:32] LABS: Basophils # (A) 0.02 X 10*3/uL (0.00-0.10); Basophils % (A) 0.1 %; Eosinophils # (A) 0 X 10*3/uL (0.04-0.35); Eosinophils % (A) 0 %; HCT 35.6 % (37.2-46.3); HGB 11.8 g/dL (12.0-15.0); Lymphocytes # (A) 0.77 X 10*3/uL (0.90-5.00); Lymphocytes % (A) 5.7 %; MCH 35.1 pg (27.0-32.0); MCHC 33.1 g/dL (32.0-37.0); Macrocytosis (M) 2+ (None Seen); Mean Platelet Volume 11.4 FL (9.5-12.2); Monocytes # (A) 1.25 X 10*3/uL (0.20-1.00); Monocytes % (A) 9.2 %; NRBC Per 100 WBC 0 X 10*3/uL (0.00-0.01); Neutrophils # (A) 11.48 X 10*3/uL (1.80-7.70); Neutrophils % (A) 84.6 %; Platelet Count 148 X 10*3/uL (140-440); RBC 3.36 X 10*6/uL (4.10-5.20); RDW 13.2 % (11.5-14.5); WBC 13.58 X 10*3/uL (4.50-10.00)
--- NOTE | 2024-11-05 12:52 | P.PN ---
Subjective Progress Note Date: 11/05/24 No acute events overnight. Patient is doing well this morning. The pain in their hip is mild. They have walked to the bathroom with a walker and assistance and were evaluated by physical therapy. They deny chest pain or shortness of breath. Objective - Vital Signs Vital signs: Vital Signs Temp 98.1 F 11/05/24 07:27 Pulse 64 11/05/24 07:27 Resp 17 11/05/24 07:27 BP 119/75 11/05/24 07:27 Pulse Ox 94 L 11/05/24 07:27 FiO2 Intake & Output 11/04/24 11/05/24 11/05/24 18:59 06:59 18:59 Intake Total 901 540 Output Total 400 75 Balance 501 465 Intake: IV 901 Oral 540 Output: Urine 200 75 Estimated Blood Loss 200 Other: Voiding Method External Catheter External Catheter # Voids 1 1 1 - Exam Patient was examined at bedside. Patient is resting comfortably in bed. No apparent distress. They are awake, alert and able to answer questions. On inspection the left surgical hip dressing is intact, there is no drainage or strikethrough. The skin surrounding the dressing is free of erythema. There is mild swelling in the operative thigh. Operative femoral nerve function is intact. The operative calf is soft to compression. The patient is able to actively plantarflex and dorsiflex their operative ankle and toes. Their operative foot appears well perfused. - Labs CBC & Chem 7: 11/05/24 03:20 11/05/24 03:20 Labs: Abnormal Lab Results - Last 24 Hours (Table) 11/04/24 11/05/24 11/05/24 Range/Units 19:15 03:20 03:20 WBC 11.0 H 13.58 H (3.8-10.6) k/uL RBC 3.36 L (4.10-5.20) X 10*6/uL Hgb 11.8 L (12.0-15.0) g/dL Hct 35.6 L (37.2-46.3) % MCV 108.1 H 106.0 H (80.0-100.0) fL MCH 35.1 H (27.0-32.0) pg Immature Gran # 0.06 H (0.00-0.04) X 10*3/uL Neutrophils # 10.4 H 11.48 H (1.3-7.7) k/uL Lymphocytes # 0.3 L 0.77 L (1.0-4.8) k/uL Monocytes # 1.25 H (0.20-1.00) X 10*3/uL Eosinophils # 0 L (0.04-0.35) X 10*3/uL Macrocytosis (manual) 2+ A (None Seen) Sodium 131 L (135-145) mmol/L Carbon Dioxide 20.8 L (21.6-31.8) mmol/L BUN/Creatinine Ratio 23.71 H (12.00-20.00) Ratio Calcium 8.2 L (8.7-10.3) mg/dL Assessment and Plan Assessment: Postop day #1 status post left hemiarthroplasty for displaced subcapital femoral neck fracture Left hip pain Plan: Weight-bear as tolerated on operative extremity with walker and assistance. Continue to manage pain. Patient worked with physical therapy and it is expected patient will need to be discharged to subacute rehab. Appreciate internal medicine for medical management. Dispo: Anticipate discharge to rehab 24 to 48 hours
--- NOTE | 2024-11-05 16:34 | P.PN ---
Subjective Progress Note Date: 11/05/24 Patient was seen and examined. POD 1 left hemiarthroplasty for displaced subcapital femoral neck fracture. Reports well controlled pain. Urinating freely. Passing gas. CBC and BMP significant for WBC 13.58, RBC 3.36, Hg 11.8, Hct 35.6, Na 131, bicarb 20.8, BUN/Cr 23.71, Ca 8.2. Mag 1.7. General: non toxic, no distress, appears at stated age Derm: warm, dry Head: atraumatic, normocephalic, symmetric Eyes: EOMI, no lid lag, anicteric sclera Mouth: no lip lesion, mucus membranes moist Cardiovascular: S1S2 reg, no murmur Lungs: Clear to auscultation bilateral, no rhonchi, no rales , no accessory muscle use Ext: no gross muscle atrophy, no edema, no contractures Neuro: no focal neuro deficits Psych: Alert, oriented, appropriate affect Based on my assessment of this patient, this patient meets a high complexity level of care. Leukocytosis which is likely reactive from surgery Acute blood loss anemia which is an expected result of surgery Hypertension Hypothyroidism B12 deficiency Monitor fever profile. Transfuse if Hg < 7. Monitor BP while holding Amlodipine/Benazepril for now. Synthroid 100 mcg PO QD. Discussed with case management, hopeful plans for discharge to [facility] tomorrow. CODE STATUS: FULL CODE DVT Prophylaxis: Eliquis PO GI Prophylaxis: Designated medical POA if patient is not able to make medical decisions for themselves: I have reviewed the following pension consultant notes: Ortho Surgery. I have reviewed the results of the following tests: CBC, BMP, Mag. I have ordered the following tests: I have discussed the care of this patient with the following independent histori an: Case management. I have independently interpreted the following test below: I have discussed the management of this patient with the following physician: Objective - Vital Signs Vital signs: Vital Signs Temp 97.8 F 11/05/24 14:21 Pulse 68 11/05/24 14:21 Resp 18 11/05/24 14:21 BP 122/78 11/05/24 14:21 Pulse Ox 90 L 11/05/24 14:21 FiO2 Intake & Output 11/04/24 11/05/24 11/05/24 18:59 06:59 18:59 Intake Total 901 540 Output Total 400 75 Balance 501 465 Intake: IV 901 Oral 540 Output: Urine 200 75 Estimated Blood Loss 200 Other: Voiding Method External Catheter External Catheter # Voids 1 1 1 - Labs CBC & Chem 7: 11/05/24 03:20 11/05/24 03:20 Labs: Abnormal Lab Results - Last 24 Hours (Table) 11/04/24 11/05/24 11/05/24 Range/Units 19:15 03:20 03:20 WBC 11.0 H 13.58 H (3.8-10.6) k/uL RBC 3.36 L (4.10-5.20) X 10*6/uL Hgb 11.8 L (12.0-15.0) g/dL Hct 35.6 L (37.2-46.3) % MCV 108.1 H 106.0 H (80.0-100.0) fL MCH 35.1 H (27.0-32.0) pg Immature Gran # 0.06 H (0.00-0.04) X 10*3/uL Neutrophils # 10.4 H 11.48 H (1.3-7.7) k/uL Lymphocytes # 0.3 L 0.77 L (1.0-4.8) k/uL Monocytes # 1.25 H (0.20-1.00) X 10*3/uL Eosinophils # 0 L (0.04-0.35) X 10*3/uL Macrocytosis (manual) 2+ A (None Seen) Sodium 131 L (135-145) mmol/L Carbon Dioxide 20.8 L (21.6-31.8) mmol/L BUN/Creatinine Ratio 23.71 H (12.00-20.00) Ratio Calcium 8.2 L (8.7-10.3) mg/dL
--- NOTE | 2024-11-06 08:09 | P.DS ---
Providers Date of admission: 11/03/24 10:14 Attending physician: Marvin Guillermo Consults: 11/03/24 10:12 Consult Physician Urgent Consulting Provider: Catracho Morris Consult Reason/Comments: medical Management Do you want consulting provider notified?: Yes Primary care physician: Gini Pastrana MD Hospital Course: The patient is a very pleasant 79-year-old female with a medical history sig nificant for smoking almost 1 pack of cigarettes a day and having had a prior right hip fracture who is presently admitted following a ground-level fall with a left hip fracture. The patient states that she sustained a fall resulting in left hip pain and an inability to ambulate. She was brought into the ER where x-rays showed a displaced subcapital femoral neck fracture. She states that after her right hip fracture she has had a slight decline in function and will use assistive device to ambulate. She smokes 1 pack of cigarettes in a day and a half and says she has no plans to quit. On 11/04/2024 the patient underwent left direct anterior hip hemiarthroplasty for displaced subcapital femoral neck fracture. The patient tolerated the procedure well. The patient was transferred to the orthopedic floor. The patient had no acute events over night. The patient's pain has been well-controlled. The patient worked with physical therapy and it was determined the patient would need to be transferred to a rehab facility at time of discharge. Patient was examined at bedside this morning. Patient is resting comfortably in chair. No apparent distress. They are awake, alert and able to answer questions. There is mild swelling in the operative thigh. Operative femoral nerve function is intact. The patient is able to actively plantarflex and dorsiflex their left ankle and toes. Prescription for [place] signed and placed in patient's chart. Start form completed and placed in the patient's chart. The patient states she has a history of a DVT status post right hip fracture, we will prescribe Eliquis 2.5 mg twice daily for 35 days for DVT prophylaxis. Plan follow up in two weeks in our office. Please see med rec for a list of accurate medications. Assessment: Postop day #2 status post left hemiarthroplasty for displaced subcapital femoral neck fracture Left hip pain Cigarette smoker Patient Condition at Discharge: Fair Plan - Discharge Summary Discharge Rx Participant: No New Discharge Prescriptions: New Sennosides-Docusate Sodium [Senokot-S] 1 tab PO BID PRN #60 tablet PRN Reason: Constipation Ondansetron [Zofran] 4 mg PO Q6HR PRN #30 tab PRN Reason: Nausea Apixaban [Eliquis] 2.5 mg PO BID 35 Days #70 tab HYDROcodone/APAP 5-325MG [[place] 5] 1 - 2 each PO Q6HR PRN #48 tab PRN Reason: Pain Omeprazole 20 mg PO DAILY PRN #30 tab PRN Reason: Gi Upset Famotidine [Pepcid] 20 mg PO BID #24 tablet No Action amLODIPine BESYLATE/BENAZEPRIL [amLODIPine BESYLATE/BENAZEPRIL 10-20 mg] 1 cap PO DAILY Calcium Carbonate/Vitamin D3 [Calcium 600 mg-Vit D3 10 mcg (400 Unit)] 1 tab PO DAILY Levothyroxine Sodium [Synthroid] 100 mcg PO DAILY Famotidine [Pepcid] 20 mg PO BID PRN PRN Reason: Gi Upset Cyanocobalamin [Vitamin B-12] 1,000 mcg PO DAILY Discharge Medication List Levothyroxine Sodium [Synthroid] 100 mcg PO DAILY 02/02/24 [History] amLODIPine BESYLATE/BENAZEPRIL [amLODIPine BESYLATE/BENAZEPRIL 10-20 mg] 1 cap PO DAILY 02/02/24 [History] Calcium Carbonate/Vitamin D3 [Calcium 600 mg-Vit D3 10 mcg (400 Unit)] 1 tab PO DAILY 11/03/24 [History] Cyanocobalamin [Vitamin B-12] 1,000 mcg PO DAILY 11/03/24 [History] Famotidine [Pepcid] 20 mg PO BID PRN 11/03/24 [History] Apixaban [Eliquis] 2.5 mg PO BID 35 Days #70 tab 11/06/24 [Rx] Famotidine [Pepcid] 20 mg PO BID #24 tablet 11/06/24 [Rx] HYDROcodone/APAP 5-325MG [[place] 5] 1 - 2 each PO Q6HR PRN #48 tab 11/06/24 [Rx] Omeprazole 20 mg PO DAILY PRN #30 tab 11/06/24 [Rx] Ondansetron [Zofran] 4 mg PO Q6HR PRN #30 tab 11/06/24 [Rx] Sennosides-Docusate Sodium [Senokot-S] 1 tab PO BID PRN #60 tablet 11/06/24 [Rx] Follow up Appointment(s)/Referral(s): Nonstaff,Physician [REFERRING] - 1-2 days Marvin Guillermo MD [Medical Doctor] - 11/18/24 1:40 pm Activity/Diet/Wound Care/Special Instructions: 1. Weight-bear as tolerated on your operative extremity unless instructed otherwise. Use a walker or other assistive device to ambulate. 2. Leave surgical dressing in place. If your dressing becomes saturated with blood more than 50%, there is drainage, or the dressing becomes loose please contact the office. 3. It is okay to shower with your surgical dressing, but do not submerge in water (no hot tubs, bath's, swimming etc.) 4. Take your blood clot prevention medication as prescribed (aspirin, Eliquis, Xarelto, and Plavix are commonly prescribed medications for blood clot prevention) 5. While taking [place] or Percocet for pain take a stool softener (Ex: Colace) and drink lots of water. 6. Keep all follow-up appointments as scheduled. You will usually be seen in 1-2 weeks following surgery. 7. Please contact the office with any questions or concerns [phone] Discharge Disposition: TRANSFER TO SNF/ECF
[2024-11-06 08:15] VITALS: BP 152/91; PULSE 67; RESP 18; TEMP 98.2
--- NOTE | 2024-11-06 13:15 | P.PN ---
Subjective Progress Note Date: 11/06/24 Patient was seen and examined. POD 2 left hemiarthroplasty for displaced subcapital femoral neck fracture. Reports well controlled pain. Urinating freely. Had a BM today. Hopeful plans for discharge to [facility] today. General: non toxic, no distress, appears at stated age Derm: warm, dry Head: atraumatic, normocephalic, symmetric Eyes: EOMI, no lid lag, anicteric sclera Mouth: no lip lesion, mucus membranes moist Cardiovascular: S1S2 reg, no murmur Lungs: Clear to auscultation bilateral, no rhonchi, no rales , no accessory muscle use Ext: no gross muscle atrophy, no edema, no contractures Neuro: no focal neuro deficits Psych: Alert, oriented, appropriate affect Based on my assessment of this patient, this patient meets a high complexity level of care. Leukocytosis which is likely reactive from surgery Acute blood loss anemia which is an expected result of surgery Hypertension Hypothyroidism B12 deficiency Restart Amlodipine/Benazepril 10-20 mg PO QD on discharge. Continue Synthroid 100 mcg PO QD on discharge. Discussed with case management, hopeful plans for discharge to [facility] today, med rec complete. CODE STATUS: FULL CODE DVT Prophylaxis: Eliquis PO GI Prophylaxis: Designated medical POA if patient is not able to make medical decisions for themselves: I have reviewed the following reporting consultant notes: Ortho Surgery. I have reviewed the results of the following tests: I have ordered the following tests: I have discussed the care of this patient with the following independent historian: Case management. I have independently interpreted the following test below: I have discussed the management of this patient with the following physician: Objective - Vital Signs Vital signs: Vital Signs Temp 98.2 F 11/06/24 06:44 Pulse 67 11/06/24 06:44 Resp 18 11/06/24 06:44 BP 152/91 11/06/24 06:44 Pulse Ox 90 L 11/06/24 06:44 FiO2 Intake & Output 11/05/24 11/06/24 11/06/24 18:59 06:59 18:59 Intake Total 540 Balance 540 Intake: Oral 540 Other: Voiding Method Toilet # Voids 1 5 - Labs CBC & Chem 7: 11/05/24 03:20 11/05/24 03:20
== END 2024-11-06 14:02 | DRG 522 ==
LOC: EC 09:00 → 4SSUR 10:14
PROVIDERS: ADMIT Orthopaedic Surgery; ATTEND Orthopaedic Surgery
PROC: 0SRS0J9 Replacement of Left Hip Joint, Femoral Surface with Synthetic Substitute, Cemented, Open Approach (ICD-10-PCS; principal; 2024-11-03)
PROC: 8E0YXBF Computer Assisted Procedure of Lower Extremity, With Fluoroscopy (ICD-10-PCS; 2024-11-03)
DX: S72.012A Unspecified intracapsular fracture of left femur, initial encounter for closed fracture (principal); E87.1 Hypo-osmolality and hyponatremia; D62 Acute posthemorrhagic anemia; F17.210 Nicotine dependence, cigarettes, uncomplicated; I10 Essential (primary) hypertension; E53.8 Deficiency of other specified B group vitamins; M81.0 Age-related osteoporosis without current pathological fracture; E03.9 Hypothyroidism, unspecified; Z79.890 Hormone replacement therapy; Z86.718 Personal history of other venous thrombosis and embolism; W01.0XXA Fall on same level from slipping, tripping and stumbling without subsequent striking against object, initial encounter; D72.829 Elevated white blood cell count, unspecified
CPT/HCPCS: 36415; 51702; 71045; 73501; 73502; 80048; 80053; 81003; 83735; 85025; 85610; 85730; 88305; 88311; 93005; 96374; 96375; 96376; 99285